=== PATIENT | female | born 1955 ===

== ENCOUNTER 2020-09-23 10:55 | Outpatient (REF) | payer MEDICARE, MEDICAID, SELFPAY ==
--- NOTE | 2020-09-23 11:00 | MM_ITS ---
EXAMINATION: MM SCREENING DIGITAL BREAST TOMOSYNTHESIS, BILATERAL CLINICAL INFORMATION: Screening. Asymptomatic. The lifetime risk of breast cancer based on the Tyrer-Cuzick Model is 5%. COMPARISON: Mammography: 09/20/2019, outside mammography 08/29/2018 ([facility]). TECHNIQUE: Digital breast tomosynthesis is performed in both the craniocaudal and mediolateral oblique views along with computer-aided detection (CAD). Synthesized 2D images are generated from the tomosynthesis. FINDINGS: There are scattered areas of fibroglandular density (ACR BI-RADS breast composition Category b). There are no significant masses, abnormal calcifications, or other abnormalities. Again, there are scattered round, rim, predominantly dermal calcifications. MM/MM tomosynthesis screening BI IMPRESSION: No mammographic evidence of malignancy. ASSESSMENT: BI-RADS 2: Benign RECOMMENDATION: Routine annual mammography screening. This patient's information was entered into a reminder system with a target due date for their next mammogram.
== END 2020-09-23 10:56 | disposition home or self-care (01) ==
LOC: HO.MAMMO 10:55
PROVIDERS: PCP Internal Medicine; Visit Provider Internal Medicine
DX: Z12.31 Encounter for screening mammogram for malignant neoplasm of breast (principal)
CPT/HCPCS: 77063; 77067

== ENCOUNTER 2021-02-14 10:46 | Outpatient (REF) | payer MEDICARE, SELFPAY ==
--- NOTE | ~2021-02-14 | XR_ITS ---
EXAMINATION: XR knee RT 4V CLINICAL INFORMATION: Reason for Exam PAIN IN RIGHT KNEE COMPARISON: None available at the time of this dictation. TECHNIQUE: frontal, lateral, tunnel and patella sunrise views FINDINGS: BONES: No fracture or dislocation is present. JOINTS: Mild narrowing of joint spaces suggest mild DJD. SOFT TISSUE: Normal XR/XR knee RT 4V IMPRESSION: Mild degenerative osteoarthritis. No joint effusion.
== END 2021-02-14 10:47 | disposition home or self-care (01) ==
LOC: HO.XRAY 10:46
PROVIDERS: PCP Internal Medicine; Visit Provider Internal Medicine
DX: M25.561 Pain in right knee (principal)
CPT/HCPCS: 73564

== ENCOUNTER 2021-09-24 10:54 | Outpatient (REF) | payer MEDICARE, SELFPAY ==
--- NOTE | ~2021-09-24 | MM_ITS ---
EXAMINATION: MM SCREENING DIGITAL BREAST TOMOSYNTHESIS, BILATERAL CLINICAL INFORMATION: Screening. Asymptomatic. The lifetime risk of breast cancer based on the Tyrer-Cuzick Model is 5%. COMPARISON: Mammography: 09/23/2020, 09/20/2019, 08/29/2018 TECHNIQUE: Digital breast tomosynthesis is performed in both the craniocaudal and mediolateral oblique views along with computer-aided detection (CAD). Synthesized 2D images are generated from the tomosynthesis. FINDINGS: There are scattered areas of fibroglandular density (ACR BI-RADS breast composition Category b). There are no significant masses, abnormal calcifications, or other abnormalities. MM/MM tomosynthesis screening BI IMPRESSION: No mammographic evidence of malignancy. ASSESSMENT: BI-RADS 1: Negative RECOMMENDATION: Routine annual mammography screening. This patient's information was entered into a reminder system with a target due date for their next mammogram.
== END 2021-09-24 10:55 | disposition home or self-care (01) ==
LOC: HO.MAMMO 10:54
PROVIDERS: Visit Provider Internal Medicine
DX: Z12.31 Encounter for screening mammogram for malignant neoplasm of breast (principal)
CPT/HCPCS: 77063; 77067

== ENCOUNTER → 2021-11-25 07:53 | Outpatient (BNVA) | payer MEDICARE, SELFPAY | PROVIDERS: PCP Internal Medicine; Referring Provider Internal Medicine; Visit Provider Nurse Practitioner | DX: Z12.11 Encounter for screening for malignant neoplasm of colon (principal); K21.9 Gastro-esophageal reflux disease without esophagitis; R10.13 Epigastric pain; Z83.71 Family history of colonic polyps | CPT/HCPCS: 99202 ==

== ENCOUNTER 2021-12-22 09:48 | Day surgery (SDC) | payer MEDICARE, SELFPAY ==
--- NOTE | 2021-12-19 12:49 | HO.ANESPROP2 ---
Documented by User: Monica Avalos NP 12/19/21 12:49 HPI - Anesthesia Eval Consult details Narrative: 66yo F for Upper Endoscopy and Colonoscopy PMFSH Active Problems Active Problems: All Active Problems (Updated 12/16/21 @ 11:22 by Ilana Baez, RN) GERD (gastroesophageal reflux disease) (Acute) Epigastric pain (Acute) Colon cancer screening (Acute) Hypertension (Acute) High cholesterol (Acute) Osteoarthritis of knees, bilateral (Acute) Insomnia (Acute) Family history of polyps in the colon (Acute) Past Medical History Medical History (Updated 12/16/21 @ 11:22 by Ilana Baez, MAGDI) Elevated cholesterol GERD (gastroesophageal reflux disease) HTN (hypertension) Impaired fasting glucose Insomnia Knee pain Surgical History Surgical History (Updated 11/25/21 @ 08:30 by BRI Clark) History of cholecystectomy History of hysterectomy Social History Social History Patient Tobacco Use Status: Never used Tobacco Second Hand Smoke Exposure: No Use of substances other than those prescribed or required for medical reasons: No Are you DNR?: No Advance Directives: No Advance Directives Information Provided: Yes Advance Directives on File: No Meds Allergies Allergy/AdvReac Type Severity Reaction Status Date / Time No Known Allergies Allergy Verified 12/16/21 11:17 [No Known Allergies*] Home Medications Medication Instructions Recorded Confirmed Last Taken Type ergocalciferol (vitamin D2) 1,250 1,250 mcg PO QWEEK 11/25/21 12/16/21 Unknown History mcg (50,000 unit) capsule losartan 50 mg tablet 50 mg PO DAILY 11/25/21 12/16/21 Unknown History naproxen 500 mg tablet 0 mg PO 11/25/21 Unknown History omega-3 fatty acids 1,000 mg 1,000 mg PO DAILY 11/25/21 12/16/21 Unknown History capsule Exam Exam Date and Time: December 19, 2021 1249 Assessment and Plan Assessment Anesthesia Assessment: Chart Reviewed Documented by User: Erika Cheema MD 12/22/21 11:48 [facility] Past Medical History Medical History (Updated 12/16/21 @ 11:22 by Ilana Baez, MAGDI) Elevated cholesterol GERD (gastroesophageal reflux disease) HTN (hypertension) Impaired fasting glucose Insomnia Knee pain Family History Family history of problems with anesthesia: No Surgical History Surgical History (Updated 11/25/21 @ 08:30 by BRI Clark) History of cholecystectomy History of hysterectomy History of Problems with Anesthesia: No Social History Social History Patient Tobacco Use Status: Never used Tobacco Second Hand Smoke Exposure: No Use of substances other than those prescribed or required for medical reasons: No Are you DNR?: No Advance Directives: No Advance Directives Information Provided: Yes Advance Directives on File: No Meds Allergies Allergy/AdvReac Type Severity Reaction Status Date / Time No Known Allergies Allergy Verified 12/16/21 11:17 [No Known Allergies*] Home Medications Medication Instructions Recorded Confirmed Last Taken Type ergocalciferol (vitamin D2) 1,250 1,250 mcg PO QWEEK 11/25/21 12/16/21 Unknown History mcg (50,000 unit) capsule losartan 50 mg tablet 50 mg PO DAILY 11/25/21 12/16/21 Unknown History naproxen 500 mg tablet 0 mg PO 11/25/21 Unknown History omega-3 fatty acids 1,000 mg 1,000 mg PO DAILY 11/25/21 12/16/21 Unknown History capsule Exam Airway Mallampati Class: II TM Dist: >3cm Neck ROM: Full Heart: rrr Lungs: cta Assessment and Plan Assessment Anesthesia Assessment: Anesthesia Plan Discussed and Chart Reviewed Final Anesthetic Review Family History of Problems with Anesthesia: No History of Problems with Anesthesia: No NPO: Yes ASA Class: II Final Preanesthetic Review: No Changes in Pt Med Stat, Meds/Allgs Chart Reviewed and Consent Obtained/Reviewed Patient Risk: Intermediate Procedure Risk: Intermediate Anesthetic Plan Anesthetic Plan: MAC: Disposition: Standard PACU
[2021-12-22 10:48] VITALS: BP 130/65; PULSE 58; RESP 16; TEMP 37.1; O2SAT 100; BMI 26.6
[2021-12-22] MEDS: Lactated Ringers 1,000 ML 100 ML IVCONT (10:59)
--- NOTE | 2021-12-22 11:37 | MHC.SHP ---
Pre-Procedural Eval Section A Date of Service: 12/22/21 The patient is an INPATIENT: No Changes since office visit: Yes Patient answered all questions; No Cold of Flu in the past 2 weeks, No New Medical Problems and No Changes in Medication The History & Physical has been completed within 30 days and I have reviewed it.: Yes Section B Chief Complaint: Epigastric Pain, Screening Allergies: Allergies Allergy/AdvReac Type Severity Reaction Status Date / Time No Known Allergies Allergy Verified 12/16/21 11:17 [No Known Allergies*] Plan I have reviewed the history and physical and performed a pertinent physical examination on my patient. No changes have occurred unless specified.
--- NOTE | 2021-12-22 11:37 | PM.OP ---
Brief Operative Note Date of Service: 12/22/21 Pre-op diagnosis: GERD, epigastric pain, colon cancer screening Post-op diagnosis: other (Gastritis, colon polyps, diverticulosis, hemorrhoids) Procedure: FLEXIBLE TRANSORAL UPPER GASTROINTESTINAL ENDOSCOPY WITH BIOPSIES AND COLONOSCOPY TILL CECUM WITH BIOPSIES, SNARE POLYPECTOMY AND SUBMUCOSAL INJECTION UPPER ENDOSCOPY Consent: Indications for the procedure and potential complications of bleeding, perforation, reaction to medications and missed diagnosis were discussed with the patient and informed consent was obtained. Instrument: Olympus GIF H 190 mid size upper endoscope Monitoring: Vital signs and clinical assessment, continuous EKG monitoring, Pulse oximetry, Carbon Dioxide monitoring and blood pressure monitoring were done throughout the procedure. Procedure: The patient was placed in the left lateral decubitis position and pre-procedure medications were administered and a bite block was placed. The endoscope was inserted into the mouth and advanced under direct vision to the third part of duodenum. A careful inspection was made as the upper endoscope was withdrawn including a retroflexed examination of the proximal stomach; Findings and interventions are described below. Findings: Larynx: Normal Esophagus: GE junction at 35. No esophagitis or Salvador's. Stomach: Moderate diffuse gastric erythema. Biopsies were obtained from the gastric body and antrum. Grade 2 flap valve on retroflexed examination of the cardia. Duodenum: Normal bulb and descending duodenum. Biopsies obtained from the 3rd part of duodenum to check for celiac sprue. Intervention: Biopsies as noted above COLONOSCOPY PROCEDURE NOTE Consent: Indications for the procedure and potential complications of bleeding, perforation, reaction to medications and missed diagnosis were discussed with the patient and informed consent was obtained. Instrument: Olympus PCF H 190 L variable stiffness pediatric colonoscope Monitoring: Vital signs and clinical assessment, intermittent blood pressure monitoring, continuous EKG monitoring, Pulse oximetry and Carbon Dioxide monitoring were done throughout the procedure. Colon withdrawl time was 40 minutes. Procedure: The patient was placed in the left lateral decubitis position and pre-procedure medications were administered. After a digital rectal examination of the ano-rectum, the video colonoscope was inserted into the rectum and advanced through the colon to the cecum. The colonoscope was slowly withdrawn in a retrograde panoramic fashion and the colon mucosa was carefully examined including a retroflexed view of the rectum. Findings and interventions are described below. Procedure Difficulty: Colon was long and tortuous and there was some loop formation. Patient was placed in the supine position and LLQ pressure was applied to intubate the cecum Findings: Terminal Ileum: Not evaluated Cecum: A 12-15 mm flat polyp opposite the ICV - raised with 3 cc of saline (submucosal injection) and removed with a hot snare Ascending Colon: Normal Transverse Colon: Normal Descending Colon: Moderate diverticulosis Sigmoid Colon: A 7-8 mm sessile polyp removed with a cold biopsy. Severe diverticulosis Rectum: Normal Ano-rectum: Small internal hemorrhoids Colon preparation: Excellent Impression and Post Procedure Diagnosis: Endoscopy Findings: ESOPHAGUS: Normal STOMACH: Diffuse Gastritis DUODENUM: Normal - bxed to check for celiac sprue Colonoscopy Findings: Two small to medium sized polyps removed Moderate diverticulosis seen in the left colon Small hemorrhoids on retroflexed exam. Plan: Await pathology results Patient has an appointment on 01/06/22 in the GI Clinic with Melanie Sanchez NP. Repeat Colonoscopy interval based on path results - in 3-5 years if polyps are adenomatous and 10 years if polyps are hyperplastic. Above findings were reviewed with the patient and GERD, colon polyps and diverticulosis handouts were given in the discharge area Surgeon: Bernardino Oh MD Anesthesia: MAC (Dr Serrato & Dr Nobles) Was an Technology Coordinator used for this Procedure?: Yes Technology Coordinator: Lashanda Styles Estimated blood loss (mL): 0 Pathology: other (A. small bowel bxs, R/O celiac B. gastric antrum bxs, R/O H. pylori C. gastric body bxs, R/O gastritis D. cecal polyp with saline lift E. sigmoid polyp) Condition: stable Disposition: PACU
--- NOTE | 2021-12-22 11:38 | W.PM.OPN ---
Operative Note Operative Note Date of Service: 12/22/21 Narrative: Pre-op diagnosis: GERD, epigastric pain, colon cancer screening Post-op diagnosis:?other (Gastritis, colon polyps, diverticulosis, hemorrhoids) Procedure: FLEXIBLE TRANSORAL UPPER GASTROINTESTINAL ENDOSCOPY WITH BIOPSIES AND COLONOSCOPY TILL CECUM WITH BIOPSIES, SNARE POLYPECTOMY AND SUBMUCOSAL INJECTION UPPER ENDOSCOPY Consent:?Indications for the procedure and potential complications of bleeding, perforation, reaction to medications and missed diagnosis were discussed with the patient and informed consent was obtained. Instrument:?Olympus GIF H 190 mid size upper endoscope Monitoring: Vital signs and clinical assessment, continuous EKG monitoring, Pulse oximetry, Carbon Dioxide monitoring and blood pressure monitoring were done throughout the procedure. Procedure:?The patient was placed in the left lateral decubitis position and pre-procedure medications were administered and a bite block was placed. The endoscope was inserted into the mouth and advanced under direct vision to the third part of duodenum. A careful inspection was made as the upper endoscope was withdrawn including a retroflexed examination of the proximal stomach; Findings and interventions are described below. Findings: Larynx:? Normal Esophagus:?GE junction at 35. No esophagitis or Salvador's. Stomach:?Moderate diffuse gastric erythema. Biopsies were obtained from the gastric body and antrum. Grade 2 flap valve on retroflexed examination of the cardia. Duodenum:?Normal bulb and descending duodenum.? Biopsies obtained from the 3rd part of duodenum to check for celiac sprue. Intervention:?Biopsies as noted above COLONOSCOPY PROCEDURE NOTE Consent:?Indications for the procedure and potential complications of bleeding, perforation, reaction to medications and missed diagnosis were discussed with the patient and informed consent was obtained. Instrument:?Olympus PCF H 190 L variable stiffness pediatric colonoscope Monitoring:?Vital signs and clinical assessment, intermittent blood pressure monitoring, continuous EKG monitoring, Pulse oximetry and Carbon Dioxide monitoring were done throughout the procedure. Colon withdrawl time was 40 minutes. Procedure:?The patient was placed in the left lateral decubitis position and pre-procedure medications were administered. After a digital rectal examination of the ano-rectum, the video colonoscope was inserted into the rectum and advanced through the colon to the cecum. The colonoscope was slowly withdrawn in a retrograde panoramic fashion and the colon mucosa was carefully examined including a retroflexed view of the rectum. Findings and interventions are described below. Procedure Difficulty:??Colon was long and tortuous and there was some loop formation. Patient was placed in the supine position and LLQ pressure was applied to intubate the cecum Findings: Terminal Ileum: Not evaluated Cecum:? A 12-15 mm flat polyp opposite the ICV - raised with 3 cc of saline (submucosal injection) and removed with a hot snare Ascending Colon:??Normal Transverse Colon:??Normal Descending Colon:? Moderate diverticulosis Sigmoid Colon:? A 7-8 mm sessile polyp removed with a cold biopsy. Severe diverticulosis Rectum:??Normal Ano-rectum:??Small internal hemorrhoids Colon preparation: Excellent? Impression and Post Procedure Diagnosis: Endoscopy Findings: ESOPHAGUS: Normal STOMACH: Diffuse Gastritis DUODENUM: Normal - bxed to check for celiac sprue Colonoscopy Findings: Two small to medium sized polyps removed Moderate diverticulosis seen in the left colon Small hemorrhoids on retroflexed exam. Plan: Await pathology results Patient has an appointment on 01/06/22 in the GI Clinic with? Melanie Sanchez NP. Repeat Colonoscopy interval based on path results - in 3-5 years if polyps are adenomatous and 10 years if polyps are hyperplastic. Above findings were reviewed with the patient and GERD, colon polyps and diverticulosis handouts were given in the discharge area Surgeon: Bernardino Oh MD Anesthesia:?MAC (Dr Serrato & Dr Nobles) Was an Payroll Director used for this Procedure?:?Yes Payroll Director:?Lashanda Styles Estimated blood loss (mL):?0 Pathology:?other (A. small bowel bxs, R/O celiac? B. gastric antrum bxs, R/O H. pylori? C. gastric body bxs, R/O gastritis? D. cecal polyp with saline lift? E. sigmoid polyp) Condition:?stable Disposition:?PACU
[2021-12-22 12:55] VITALS: BP 105/52; PULSE 76; RESP 16; TEMP 36.1; O2SAT 98
[2021-12-22 13:10] VITALS: BP 106/60; PULSE 56; RESP 16; O2SAT 99
[2021-12-22 13:25] VITALS: BP 134/84; PULSE 56; RESP 16; TEMP 36.1; O2SAT 100
== END 2021-12-22 13:52 | disposition home or self-care (01) ==
PROVIDERS: PCP Internal Medicine; Visit Provider Internal Medicine Gastroenterology
PROC: (CPT 45385; principal; 2021-12-22 11:20)
DX: Z12.11 Encounter for screening for malignant neoplasm of colon (principal); Z83.71 Family history of colonic polyps; D12.0 Benign neoplasm of cecum; D12.5 Benign neoplasm of sigmoid colon; K57.30 Diverticulosis of large intestine without perforation or abscess without bleeding; K64.8 Other hemorrhoids; K21.9 Gastro-esophageal reflux disease without esophagitis; K29.50 Unspecified chronic gastritis without bleeding; E78.00 Pure hypercholesterolemia, unspecified; I10 Essential (primary) hypertension; R73.01 Impaired fasting glucose; G47.00 Insomnia, unspecified; M17.0 Bilateral primary osteoarthritis of knee; Z79.899 Other long term (current) drug therapy; Z90.49 Acquired absence of other specified parts of digestive tract
CPT/HCPCS: 45385; 45380; 45381; 43239; 88305; 88342

== ENCOUNTER → 2022-01-06 08:27 | Outpatient (BNVA) | payer MEDICARE, SELFPAY | PROVIDERS: PCP Internal Medicine; Referring Provider Internal Medicine; Visit Provider Nurse Practitioner | DX: K21.9 Gastro-esophageal reflux disease without esophagitis (principal); D12.6 Benign neoplasm of colon, unspecified; R10.13 Epigastric pain; K59.00 Constipation, unspecified; Z98.890 Other specified postprocedural states | CPT/HCPCS: 99212 ==

== ENCOUNTER → 2022-02-10 09:22 | Outpatient (BNVA) | payer OTHER, SELFPAY | PROVIDERS: PCP Internal Medicine; Visit Provider Surgery Vascular Surgery | DX: I83.12 Varicose veins of left lower extremity with inflammation (principal) | CPT/HCPCS: 99202 ==

== ENCOUNTER 2022-04-08 07:52 | Outpatient (REF) | payer OTHER, SELFPAY ==
--- NOTE | ~2022-04-08 | US_ITS ---
EXAMINATION: BILATERAL LOWER EXTREMITY VENOUS ULTRASOUND (Reflux Exam) CLINICAL INDICATION: Left lower extremity varicose veins. COMPARISON: None. TECHNIQUE: Color flow triplex imaging and compression Doppler was performed to evaluate both the deep and the superficial systems bilaterally. To evaluate the superficial system, the examination was performed in the upright position. Color-flow Doppler ultrasound and compression ultrasound were utilized. In addition, maneuvers were utilized to demonstrate reflux. FINDINGS: SUPERFICIAL ULTRASOUND WITH DOPPLER OF RIGHT LOWER EXTREMITY GREAT SAPHENOUS VEIN: Saphenofemoral junction: 5 mm Max diameter: 5 mm Min diameter: 2 mm Reflux: There is segmental reflux at the knee and below the knee up to 3 seconds. DUPLICATED MEDIAL GREAT SAPHENOUS VEIN: Max Diameter: None Imaged Reflux: NA DUPLICATED LATERAL GREAT SAPHENOUS VEIN: Diameter: 2 mm at the saphenofemoral junction. Reflux: None SMALL SAPHENOUS VEIN: Proximal Calf: 3 mm Distal Calf: 3 mm Reflux: There is gross reflux throughout the small saphenous vein measuring up to 2.7 seconds in the proximal calf. VEIN OF GIACOMINI: None Imaged. PERFORATORS: Location: Distal calf, at the knee, proximal and mid calf. Varicosities measure between 1 and 3 mm. Reflux: Varicosities at the knee and in the calf demonstrate up to 2.7 seconds of reflux. VARICOSITIES: Location: None Imaged Reflux: NA DEEP VENOUS ULTRASOUND OF THE RIGHT LOWER EXTREMITY: Common Femoral Vein: Compressible, normal respiratory variation and augmented flow. Femoral vein: Compressible, normal color flow and augmentation. Popliteal Vein: Compressible, normal augmentation. Deep Reflux: There is no evidence of reflux in the deep system in either the common femoral vein or the popliteal vein. Johnson's Cyst: There is no evidence of a Johnson's cyst. SUPERFICIAL ULTRASOUND WITH DOPPLER OF LEFT LOWER EXTREMITY GREAT SAPHENOUS VEIN: Saphenofemoral junction: 6 mm Max diameter: 6 mm Min diameter: 1 mm Reflux: Segmental reflux above the knee and at the knee up to 2.9 seconds. DUPLICATED MEDIAL GREAT SAPHENOUS VEIN: Max Diameter: None Imaged Reflux: NA DUPLICATED LATERAL GREAT SAPHENOUS VEIN: Diameter: None Imaged Reflux: NA SMALL SAPHENOUS VEIN: Proximal Calf: 3 mm Distal Calf: 2 mm Reflux: There is up to 0.5 seconds of reflux within the proximal/mid calf. VEIN OF GIACOMINI: None Imaged. PERFORATORS: Location: Mid and distal calf cyst measuring between 1 and 2 mm Reflux: None VARICOSITIES: Location: None Imaged Reflux: NA DEEP VENOUS ULTRASOUND OF THE LEFT LOWER EXTREMITY: Common Femoral Vein: Compressible, normal respiratory variation and augmented flow. Femoral vein: Compressible, normal color flow and augmentation. Popliteal Vein: Compressible, normal augmentation. Deep Reflux: There is no evidence of reflux in the deep system in either the common femoral vein or the popliteal vein. Johnson's Cyst: There is no evidence of a Johnson's cyst. US/US venous duplex LE BI IMPRESSION: 1. Segmental right great saphenous venous insufficiency at and below the knee. 2. Segmental left great saphenous venous insufficiency above the knee and at the knee. 3. Bilateral small saphenous venous insufficiency. 4. No evidence of DVT or deep venous insufficiency.
== END 2022-04-08 07:53 | disposition home or self-care (01) ==
LOC: HO.US 07:52
PROVIDERS: Visit Provider Surgery Vascular Surgery
DX: I83.12 Varicose veins of left lower extremity with inflammation (principal)
CPT/HCPCS: 93970

== ENCOUNTER → 2022-04-14 08:48 | Outpatient (BNVA) | payer OTHER, SELFPAY | PROVIDERS: PCP Internal Medicine; Visit Provider Surgery Vascular Surgery | DX: I83.12 Varicose veins of left lower extremity with inflammation (principal) | CPT/HCPCS: 99212 ==

== ENCOUNTER → 2022-05-01 08:18 | Outpatient (BNVA) | payer OTHER, SELFPAY | PROVIDERS: PCP Internal Medicine; Visit Provider Surgery Vascular Surgery | DX: I83.12 Varicose veins of left lower extremity with inflammation (principal) | CPT/HCPCS: 36475 ==

== ENCOUNTER 2022-05-04 14:48 | Outpatient (REF) | payer OTHER, SELFPAY ==
--- NOTE | ~2022-05-04 | US_ITS ---
EXAMINATION: US VENOUS ULTRASOUND WITH DOPPLER LOWER EXTREMITY, LEFT CLINICAL INFORMATION: Pain left leg COMPARISON: None TECHNIQUE: Ultrasound of the deep veins is performed from the hip to the calf with compression sonography and color and pulse Doppler assessment. Spectral analysis with color-flow imaging is performed. FINDINGS: There is normal venous compression and respiratory variation and augmented flow. The visualized common femoral vein, superficial femoral vein, profunda femoral vein, popliteal vein, and the trifurcation region shows no evidence of deep venous thrombosis. There is no significant popliteal fossa cyst. The left greater saphenous vein is occluded 1.4 cm from the junction status post ablation procedure. If the patient's symptoms persist, followup ultrasound in 5 days 7 days might be of value to exclude proximal propagation from a non-visualized calf vein. US/US venous duplex LE LT IMPRESSION: No DVT demonstrated in the left lower extremity. Occluded left greater saphenous vein approximately 1.4 cm from the femoral venous junction junction.
== END 2022-05-04 14:49 | disposition home or self-care (01) ==
LOC: HO.US 14:48
PROVIDERS: Visit Provider Surgery Vascular Surgery
DX: M79.605 Pain in left leg (principal)
CPT/HCPCS: 93971

== ENCOUNTER → 2022-05-14 10:39 | Outpatient (BNVA) | payer OTHER, SELFPAY | PROVIDERS: PCP Internal Medicine; Visit Provider Surgery Vascular Surgery | DX: I83.11 Varicose veins of right lower extremity with inflammation (principal) | CPT/HCPCS: 99212 ==

== ENCOUNTER 2022-05-28 14:52 | Outpatient (REF) | payer OTHER, SELFPAY ==
--- NOTE | ~2022-05-28 | MM_ITS ---
EXAMINATION: BONE DENSITOMETRY CLINICAL INDICATION: Menopause. COMPARISON: This is the patient's baseline examination. TECHNIQUE: Using a [employer] DXA System (software version: 13.1) manufactured by [employer], dual-energy x-ray absorptiometry was performed of the lumbar spine and left hip. The images are of good technical quality. Summary results are attached. FINDINGS: AP SPINE L1-L4: BMD 0.985 g/cm2, Z-score 0.0, T-score -1.6, osteopenia. LEFT FEMUR, NECK: BMD 0.736 g/cm2, Z-score -0.6, T-score -2.2, osteopenia. LEFT FEMUR, TOTAL: BMD 0.906 g/cm2, Z-score 0.5, T-score -0.8, normal. IDENTIFIED RISK FACTORS: Early menopause, secondary osteoporosis, hysterectomy, bilateral oophorectomy. HISTORY OF FRACTURE: None listed. MEDICATIONS: None listed. MM/XR DEXA axial skeleton IMPRESSION: 1. DIAGNOSIS: Osteopenia based on the lowest T-score value of -2.2 in the femoral neck applying World Health Organization criteria. 2. 10-YEAR FRACTURE RISK PREDICTION, FRAX: Major osteoporotic fracture (clinical spine, forearm, hip or shoulder) 6.7%. Hip fracture 1.2%. 3. Treatment Recommendations: NOF guidelines recommend consideration for treatment in postmenopausal women and men age 50 and older presenting with the following: -A hip or vertebral (clinical or morphometric) fracture. -T-score less than or equal to -2.5 at the femoral neck or spine after appropriate evaluation to exclude secondary causes. -Low bone mass at the hip or spine and a 10-year fracture probability by FRAX of greater than or equal to 3% for hip fracture or greater than or equal to 20% for major osteoporotic fracture based on the [place] adapted WHO algorithm. 4. Other Recommendations: All treatment decisions require clinical judgment and consideration of individual patient factors, including patient preferences, comorbidities, previous drug use, risk factors not captured in the FRAX model (e.g. frailty, falls, vitamin D deficiency, increased bone turnover, interval significant decline in bone density) and possible under or overestimation of fracture risk by FRAX. Additional medical evaluation for secondary cause of low bone mineral density may be appropriate. FUTURE SCAN RECOMMENDATION: People with diagnosed cases of osteoporosis or at high risk for fracture should have regular bone mineral density tests. For patients eligible for Medicare, routine testing is allowed once every 2 years. The testing frequency can be increased to one year for patients who have rapidly progressing disease, those who are receiving or discontinuing medical therapy to restore bone mass, or have additional risk factors.
== END 2022-05-28 14:53 | disposition home or self-care (01) ==
LOC: HO.MAMMO 14:52
PROVIDERS: Visit Provider Internal Medicine
DX: Z13.820 Encounter for screening for osteoporosis (principal); Z78.0 Asymptomatic menopausal state; E55.9 Vitamin D deficiency, unspecified
CPT/HCPCS: 77080

== ENCOUNTER → 2022-06-09 09:58 | Outpatient (BNVA) | payer OTHER, SELFPAY | PROVIDERS: PCP Internal Medicine; Visit Provider Nurse Practitioner | DX: K21.9 Gastro-esophageal reflux disease without esophagitis (principal); K59.00 Constipation, unspecified; R10.13 Epigastric pain; Z86.010 Personal history of colon polyps | CPT/HCPCS: 99212 ==

== ENCOUNTER → 2022-07-17 08:05 | Outpatient (BNVA) | payer OTHER, SELFPAY | PROVIDERS: PCP Internal Medicine; Visit Provider Surgery Vascular Surgery | DX: I83.11 Varicose veins of right lower extremity with inflammation (principal) | CPT/HCPCS: 36482 ==

== ENCOUNTER → 2022-07-30 09:51 | Outpatient (BNVA) | payer OTHER, SELFPAY | PROVIDERS: PCP Internal Medicine; Visit Provider Surgery Vascular Surgery | DX: I83.11 Varicose veins of right lower extremity with inflammation (principal) | CPT/HCPCS: 99212 ==

== ENCOUNTER 2022-09-25 11:37 | Outpatient (REF) | payer OTHER, SELFPAY ==
--- NOTE | ~2022-09-25 | MM_ITS ---
EXAMINATION: MM SCREENING DIGITAL BREAST TOMOSYNTHESIS, BILATERAL CLINICAL INFORMATION: Screening. Asymptomatic. The lifetime risk of breast cancer based on the Tyrer-Cuzick Model is 4%. COMPARISON: Mammography: 09/24/2020, 09/23/2020, 09/20/2019 TECHNIQUE: Digital breast tomosynthesis is performed in both the craniocaudal and mediolateral oblique views along with computer-aided detection (CAD). Synthesized 2D images are generated from the tomosynthesis. FINDINGS: There are scattered areas of fibroglandular density (ACR BI-RADS breast composition Category b). There are no significant masses, abnormal calcifications, or other abnormalities. No developing density or architectural abnormality. There are scattered predominantly dermal round and rim calcifications again seen. Small intramammary node again noted posterior 9:00 right breast similar to 2019. No significant changes. MM/MM tomosynthesis screening BI IMPRESSION: No mammographic evidence of malignancy. ASSESSMENT: BI-RADS 2: Benign RECOMMENDATION: Routine annual mammography screening. This patient's information was entered into a reminder system with a target due date for their next mammogram.
== END 2022-09-25 11:38 | disposition home or self-care (01) ==
LOC: HO.MAMMO 11:37
PROVIDERS: PCP Internal Medicine; Visit Provider Internal Medicine
DX: Z12.31 Encounter for screening mammogram for malignant neoplasm of breast (principal)
CPT/HCPCS: 77063; 77067

== ENCOUNTER → 2022-12-10 08:57 | Outpatient (BNVA) | payer OTHER, SELFPAY | PROVIDERS: PCP Internal Medicine; Visit Provider Nurse Practitioner | DX: K59.00 Constipation, unspecified (principal); K21.9 Gastro-esophageal reflux disease without esophagitis | CPT/HCPCS: 99212 ==

== ENCOUNTER 2023-03-03 11:48 | Outpatient (REF) | payer OTHER, SELFPAY ==
--- NOTE | ~2023-03-03 | XR_ITS ---
EXAMINATION: XR THORACIC SPINE CLINICAL INFORMATION: Mid back pain for 6 months. COMPARISON: None available. TECHNIQUE: 3 views of the thoracic spine were obtained. FINDINGS: Mild increased thoracic kyphosis is seen with normal spinal alignment. Mild multilevel degenerative changes are seen in the thoracic spine with degenerative disc disease including disc space narrowing and marginal osteophyte formation. There is no acute fracture. The soft tissues are unremarkable. XR/XR thoracic spine 3V IMPRESSION: Mild increased thoracic kyphosis and mild multilevel degenerative changes without acute abnormality.
== END 2023-03-03 11:49 | disposition home or self-care (01) ==
LOC: HO.XRAY 11:48
PROVIDERS: PCP Internal Medicine; Visit Provider Internal Medicine
DX: M62.830 Muscle spasm of back (principal)
CPT/HCPCS: 72072

== ENCOUNTER 2023-04-14 11:00 | Outpatient (RCR) | payer OTHER, SELFPAY ==
--- NOTE | 2023-03-05 10:44 | MHC.PT.EP ---
[facility] [place] [facility] [place] [facility] [place] Office [address] [phone] F: [phone] F: [phone] F: [phone] F: [phone] Physical Therapy Plan of Care Date of Evaluation: Date of Surgery: Diagnosis: spasms of thoracic back muscle (MD Dx) R shoulder subacromial impingement from poor posture (PT Dx) Assessment: Patient is a 67 y.o. Greek speaking female who is referred to PT by Darline Finnegan MD with Dx of spasms of thoracic back muscle. PT diagnosis is R shoulder subacromial impingement from poor posture and muscle imbalances in shoulder girdle. Patient impairments include pain, poor posture, limited ROM, weakness. Patient current functional limitations are moving arm into extension, reaching overhead, helping bathe mother, brain picker items. Patient will benefit from skilled PT to address aforementioned impairments and functional limitations to meet established goals. Frequency and Duration: The patient will be seen 2x/week for 4 weeks Short Term Goals: 2 weeks Patient demonstrates consistency and independence with HEP to self manage symptoms. Patient is able to self correct poor posture in sitting without cues to reduce strain to neck and back. Care Home Goals: 4 weeks Patient presents with increased R shoulder flexion AROM 175 degrees to reach to high cabinets. Patient presents with increased R shoulder flexion strength 5/5 to be able to brain picker items out of refrigerator. Treatment Plan: Modalities to reduce pain, spasms and effusion. Manual therapy to restore motion and function. Therapeutic exercise to improve strength and flexibility. Neuromuscular re-education for posture and balance. Therapeutic activities to return to functional activities of daily living. Electronically signed by: Alison Howe, PT, DPT Please sign and return to therapist. Thank you for your referral.
--- NOTE | 2023-04-14 17:13 | MHC.PT.DC ---
[facility] [place] Office [place] Office [place] Office [address] [place] [phone] F: [phone] F: [phone] F: [phone] F: [phone] Physical Therapy Discharge Report Diagnosis: spasms of thoracic back muscle (MD Dx) R shoulder subacromial impingement from poor posture (PT Dx) Date of Surgery: Date of Evaluation: 03/05/23 Date of Discharge: 04/14/23 Treatments to Date: 10 Cancellations to Date: No Shows to Date: Discharge Status: Improved Function Independent with HEP Discharge Summary: Discussed with patient continuing PT or discharge. She reports she feels significant improving since beginning PT and would like to be discharged today. She feels she can maintain her improvements with home exercises. I encouraged her to keep monitoring her posture to reduce strain to neck and mid back. Electronically signed by: Alison Howe, PT, DPT Please sign and return to therapist. Thank you for your referral.
== END 2023-04-14 17:13 | disposition home or self-care (01) ==
LOC: HO.PT 11:00
PROVIDERS: PCP Internal Medicine; Visit Provider Internal Medicine
DX: M62.830 Muscle spasm of back (principal)
CPT/HCPCS: 97110; 97112; 97140; 97161; 97530

== ENCOUNTER 2023-06-24 09:18 | Outpatient (AMB) | payer OTHER, SELFPAY ==
--- NOTE | 2023-06-24 09:20 | MHC.OFFVIS ---
Intake Vital Signs 06/24/23 09:24 Height 5 ft 1 in Weight 142 lb 13.753 oz BMI 27.0 BP 118/65 Blood Pressure Location Lt brachial Position Sitting Pulse 71 Intake Visit Reasons: 6 month FU Intake Note: Patient presents to in office visit today in 6 months follow up of GERD and CIC. CC: Patient reports she has been doing well and symptoms are well managed with medications prescribed. She denies any GI symptoms today. 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 The only new medical conditions was a procedure she had on her leg for varicose veins and now is wearing compression stockings. ROV 6 mos. (2) GERD (gastroesophageal reflux disease): ?Code(s): K21.9 - Gastro-esophageal reflux disease without esophagitis ? ? ? Medications: Refilled pantoprazole (Prot jordon) 40 mg? PO DAILY 30 days 30 tabs 6RF E K21.9 - Gastro-eso phageal reflux dis ease without esoph agitis ? sennosides (Shamika-k ot) 17.2 mg (2 x 8.6 m g) PO BEDTIME 60 t abs 6RF K59.00 - Constipat ion, unspecified ? docusate sodium (C olace) 100 mg? PO .DAILY WITH FOOD 30 days 30 caps 6RF ? ? TODAY'S VISIT VENEZUELAN #[id number] She says she continues to improve with her GI conditions. She continues on her protonix, senna and colace. She remains satisfied with her GI regimen. Return office visit in 6 months [facility] Medical History Elevated cholesterol GERD (gastroesophageal reflux disease) HTN (hypertension) Impaired fasting glucose Insomnia Knee pain Surgical History H/O colonoscopy History of cholecystectomy History of hysterectomy Hx of varicose vein ligation Social History Patient Tobacco Use Status: Never used Tobacco Second Hand Smoke Exposure: No Review of Systems Const Denies fatigue, Denies fever(s), Denies night sweats, Denies poor appetite and Denies weight loss Eyes Details: glasses Reports requires corrective lenses ENT Reports Normal hearing present, Denies dental pain, Denies dysphagia, Denies hearing loss, Denies mouth pain, Denies odynophagia, Denies throat swelling, Denies tongue swelling and Reports other (Dentition adequate) Card Reports no additional complaints Resp Reports no additional complaints GI Denies abdominal pain, Denies melena, Denies bloating, Denies hematochezia, Reports constipation, Denies GI cramping, Denies dysphagia, Denies excessive flatus, Denies early satiety, Reports heartburn, Denies diarrhea, Denies nausea, Denies odynophagia, Denies vomiting and Denies hematemesis Skin/Breast Denies pruritus, Denies lesions, Denies rash and Denies jaundice Neuro Reports Normal hearing present and Denies Abnormal speech present Endo Denies fatigue Aller/Immun Denies throat swelling and Denies tongue swelling Physical Exam Vital Signs: Last Vital Signs Pulse 71 06/24/23 09:24 BP 118/65 06/24/23 09:24 BMI result Body Mass Index 27.0 Const General: cooperative, no acute distress, well developed and well groomed Nutritional Appearance: average body habitus and well nourished Orientation/consciousness: oriented to person, oriented to place and oriented to time Limitations: language barrier HEENT Head: Yes normocephalic and Yes atraumatic Eyes General: appearance normal, both eyes and all related structures Pupils: Equal, round and reactive pupils present Neck Neck: Yes normal visual inspection and Yes no lymphadenopathy Thyroid: Thyroid normal Resp Effort & Inspection: normal respiratory effort and able to speak in complete sentences Auscultation: clear to auscultation bilaterally Cardio Rate: regular rate Rhythm: regular rhythm Heart sounds: Normal, physiologic split S2 sound present Peripheral pulses: radial pulses present and posterior tibial pulses present GI Inspection: No distended and No Abdominal panniculus present Palpation (GI): Soft to palpation, nontender, no guarding, not rigid and No hepatosplenomegaly present Percussion: Yes normal to percussion Auscultation: normal bowel sounds Rectal Exam - Female: deferred Skin General skin exam: no rashes or lesions noted, turgor normal, skin not dry, no jaundice, No spider nevi and no striae Rashes: no rashes Nails: normal Neuro General: oriented to person, oriented to place and oriented to time Cranial nerves: Yes Equal, round and reactive pupils present and Yes Normal hearing present Speech: No Abnormal speech present Extrem General: Yes normal to inspection, No clubbing, No cyanosis and No edema Psych Appearance: grossly normal and well kempt Mental Status: mental status grossly normal Speech and movement: Normal speech and movement present Affect: normal affect Attitude: cooperative Thought process: Normal thought process present and not confabulating Thought content: Normal thought content present Insight: Fair insight present (Psych) Judgement: Fair judgement present (Psych) Assessment & Plan Assessment & Plan (1) GERD (gastroesophageal reflux disease): Code(s): K21.9 - Gastro-esophageal reflux disease without esophagitis Plan: VENEZUELAN #[id number] She says she continues to improve with her GI conditions. She continues on her protonix, senna and colace. She remains satisfied with her GI regimen. Return office visit in 6 months (2) Constipation: Code(s): K59.00 - Constipation, unspecified Medications: Refilled pantoprazole (Protonix) 40 mg PO DAILY 30 days 30 tabs 6RF K21.9 - Gastro-esophageal reflux disease without esophagitis sennosides (Shamika-crissy) 17.2 mg (2 x 8.6 mg) PO BEDTIME 60 tabs 6RF K59.00 - Constipation, unspecified docusate sodium (Colace) 100 mg PO .DAILY WITH FOOD 30 days 30 caps 6RF Coding Level of Care Code Est Pt Level 3 (04558) Diagnoses GERD (gastroesophageal reflux disease) K21.9 Constipation K59.00
[2023-06-24 09:24] VITALS: BP 118/65; PULSE 71; BMI 27.0
== END 2023-06-24 10:00 | disposition home or self-care (01) ==
PROVIDERS: Visit Provider Nurse Practitioner
DX: K21.9 Gastro-esophageal reflux disease without esophagitis (principal); K59.00 Constipation, unspecified
CPT/HCPCS: 99213

== ENCOUNTER → 2023-06-24 09:18 | Outpatient (BNVA) | payer OTHER, SELFPAY | PROVIDERS: Visit Provider Nurse Practitioner | DX: K21.9 Gastro-esophageal reflux disease without esophagitis (principal); K59.00 Constipation, unspecified | CPT/HCPCS: 99212 ==

== ENCOUNTER 2023-09-10 09:39 | Outpatient (REF) | payer OTHER, SELFPAY ==
[2023-09-10 12:00] LABS: Cholesterol 194 mg/dL (<200); HDL Cholesterol 49 mg/dL (>40); LDL Cholesterol Calculated 128 mg/dL (<100); Triglycerides 87 mg/dL (<150)
[2023-09-10 12:04] LABS: Anion Gap 12 (12-20); Blood Urea Nitrogen 27 mg/dL (9-16); Calcium 9.6 mg/dL (8.4-10.2); Carbon Dioxide 24 mmol/L (22-29); Chloride 109 mmol/L (96-108); Estimated Glomerular Filt Rate > 60; Glucose Random 93 mg/dL (60-115); Potassium 4.4 mmol/L (3.3-5.1); Sodium 141 mmol/L (135-145)
[2023-09-10 12:09] LABS: Vitamin D 25-OH Total 45.1 ng/mL (>30)
[2023-09-10 12:48] LABS: Reflex LDLD? No
== END 2023-09-10 09:40 | disposition home or self-care (01) ==
LOC: HO.HHCL 09:39
PROVIDERS: Visit Provider Internal Medicine
DX: R73.01 Impaired fasting glucose (principal); E55.9 Vitamin D deficiency, unspecified; E78.5 Hyperlipidemia, unspecified
CPT/HCPCS: 36415; 80048; 80061; 82306

== ENCOUNTER 2023-09-28 10:28 | Outpatient (REF) | payer OTHER, SELFPAY ==
--- NOTE | ~2023-09-28 | MM_ITS ---
EXAMINATION: MM SCREENING DIGITAL BREAST TOMOSYNTHESIS, BILATERAL CLINICAL INFORMATION: Screening. Asymptomatic. COMPARISON: Mammography: 09/26/2022, 09/24/2021, 09/24/2020, 09/23/2020, 09/20/2019 TECHNIQUE: Digital breast tomosynthesis is performed in both the craniocaudal and mediolateral oblique views along with computer-aided detection (CAD). Synthesized 2D images are generated from the tomosynthesis. FINDINGS: There are scattered areas of fibroglandular density (ACR BI-RADS breast composition Category b). There are bilateral skin calcifications. These are benign. There are no suspicious masses, suspicious grouped calcifications, or areas of architectural distortion in either breast. The parenchymal pattern is stable from prior exams. MM/MM tomosynthesis screening BI IMPRESSION: No mammographic evidence of malignancy. ASSESSMENT: BI-RADS BI-RADS 2 - Benign Findings RECOMMENDATION: Routine annual mammography screening. 1 year F/U This examination should not preclude the clinical evaluation of a suspicious palpable abnormality. This patient's information was entered into a reminder system with a target due date for their next mammogram.
== END 2023-09-28 10:29 | disposition home or self-care (01) ==
LOC: HO.MAMMO 10:28
PROVIDERS: PCP Internal Medicine; Visit Provider Internal Medicine
DX: Z12.31 Encounter for screening mammogram for malignant neoplasm of breast (principal)
CPT/HCPCS: 77063; 77067

== ENCOUNTER → 2023-09-28 11:30 | Outpatient (BNV) | payer OTHER, SELFPAY | PROVIDERS: PCP Internal Medicine; Visit Provider Radiology Diagnostic Radiology | DX: Z12.31 Encounter for screening mammogram for malignant neoplasm of breast (principal) | CPT/HCPCS: 77063; 77067 ==

== ENCOUNTER 2024-01-06 10:35 | Outpatient (AMB) | payer OTHER, SELFPAY ==
--- NOTE | 2024-01-06 10:39 | A.OFFVIS_ITS ---
Intake Vital Signs 01/06/24 10:40 Height 5 ft 1 in Weight 145 lb 8.081 oz BMI 27.5 BP 107/60 Blood Pressure Location Lt brachial Position Sitting Pulse 69 Intake Visit Reasons: 6 month follow up CIC, GERD Intake Note: Patient presents to in office visit today in 6 months follow up of GERD and CIC. CC: Patient reports she has been doing well and symptoms are well managed with medications prescribed. She denies any GI symptoms today. Substation Maintenance Technician Required: Yes Substation Maintenance Technician Name: susan Cline Accompanied by: surgical specialist Allergies No Known Allergies [No Known Allergies*] Allergy (Verified 01/06/24 10:43) HPI 6 month follow up CIC, GERD HPI Details Assessment & Plan (1) GERD (gastroesophageal reflux diseas e): Code(s): K21.9 - Gastro-esophageal reflux disease without esophagitis Plan: MALIAN #[id number] She says she continues to improve with her GI conditions. She continues on her protonix, senna and colace. She remains satisfied with her GI regimen. 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 She continues on her protonix, senna and colace. She remains satisfied with her GI regimen. Return office visit in 6 months [facility] Medical History Elevated cholesterol GERD (gastroesophageal reflux disease) HTN (hypertension) Impaired fasting glucose Insomnia Knee pain Surgical History H/O colonoscopy History of cholecystectomy History of hysterectomy Hx of varicose vein ligation Social History Patient Tobacco Use Status: Never used Tobacco Second Hand Smoke Exposure: No Review of Systems Const Denies fatigue, Denies fever(s), Denies night sweats, Denies poor appetite and Denies weight loss Eyes Details: glasses Reports requires corrective lenses ENT Reports Normal hearing present, Denies dental pain, Denies dysphagia, Denies hearing loss, Denies mouth pain, Denies odynophagia, Denies throat swelling, Denies tongue swelling and Reports other (Dentition adequate) Card Reports no additional complaints Resp Reports no additional complaints GI Details: Denies abdominal pain, Denies melena, Denies bloating, Denies hematochezia, Repo rts constipation, Denies GI cramping, Denies dysphagia, Denies excessive flatus, Denies early satiety, Reports heartburn, Denies diarrhea, Denies nausea, Denies odynophagia, Denies vomiting and Denies hematemesis Skin/Breast Denies pruritus, Denies lesions, Denies rash and Denies jaundice Neuro Reports Normal hearing present and Denies Abnormal speech present Endo Denies fatigue Aller/Immun Denies throat swelling and Denies tongue swelling Physical Exam Vital Signs: Last Vital Signs Pulse 69 01/06/24 10:40 BP 107/60 01/06/24 10:40 BMI result Body Mass Index 27.5 Const General: cooperative, no acute distress, well developed and well groomed Nutritional Appearance: well nourished and overweight Orientation/consciousness: oriented to person, oriented to place and oriented to time Limitations: language barrier HEENT Head: Yes normocephalic and Yes atraumatic Eyes General: appearance normal, both eyes and all related structures Pupils: Equal, round and reactive pupils present Neck Neck: Yes normal visual inspection and Yes no lymphadenopathy Thyroid: Thyroid normal Resp Effort & Inspection: normal respiratory effort and able to speak in complete sentences Auscultation: clear to auscultation bilaterally Cardio Rate: regular rate Rhythm: regular rhythm Heart sounds: Normal, physiologic split S2 sound present Peripheral pulses: radial pulses present and posterior tibial pulses present GI Inspection: No distended, No Abdominal panniculus present and Yes obesity Palpation (GI): Soft to palpation, nontender, no guarding, not rigid and No hepatosplenomegaly present Percussion: Yes normal to percussion Auscultation: normal bowel sounds Rectal Exam - Female: deferred Skin General skin exam: no rashes or lesions noted, turgor normal, skin not dry, no jaundice, No spider nevi and no striae Rashes: no rashes Nails: normal Neuro General: oriented to person, oriented to place and oriented to time Cranial nerves: Yes Equal, round and reactive pupils present and Yes Normal hearing present Speech: No Abnormal speech present Extrem General: Yes normal to inspection, No clubbing, No cyanosis and No edema Psych Appearance: grossly normal and well kempt Mental Status: mental status grossly normal Speech and movement: Normal speech and movement present Affect: normal affect Attitude: cooperative Thought process: Normal thought process present and not confabulating Thought content: Normal thought content present Insight: Limited insight present (Psych) Judgement: Limited judgement present (Psych) Assessment & Plan Assessment & Plan (1) GERD (gastroesophageal reflux disease): Code(s): K21.9 - Gastro-esophageal reflux disease without esophagitis (2) Constipation: Code(s): K59.00 - Constipation, unspecified (3) Tubular adenoma of colon: Comment: 2021 scope= 2 TA repeat 5 years Code(s): D12.6 - Benign neoplasm of colon, unspecified Plan MALIAN #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 She continues on her protonix, senna and colace. She remains satisfied with her GI regimen. Return office visit in 6 months Medications: Refilled pantoprazole (Protonix) 40 mg PO DAILY 30 days 30 tabs 6RF K21.9 - Gastro- esophageal reflux disease without esophagitis sennosides (Shamika-crissy) 17.2 mg (2 x 8.6 mg) PO BEDTIME 60 tabs 6RF K59.00 - Constipation, unspecified docusate sodium (Colace) 100 mg PO .DAILY WITH FOOD 30 days 30 caps 6RF Coding Level of Care Code Est Pt Level 3 (91459) Diagnoses GERD (gastroesophageal reflux disease) K21.9 Constipation K59.00 Tubular adenoma of colon D12.6
[2024-01-06 10:40] VITALS: BP 107/60; PULSE 69; BMI 27.5
== END 2024-01-06 11:41 | disposition home or self-care (01) ==
PROVIDERS: PCP Internal Medicine; Visit Provider Nurse Practitioner
DX: K21.9 Gastro-esophageal reflux disease without esophagitis (principal); K59.00 Constipation, unspecified; D12.6 Benign neoplasm of colon, unspecified
CPT/HCPCS: 99213

== ENCOUNTER → 2024-01-06 10:35 | Outpatient (BNVA) | payer OTHER, SELFPAY | PROVIDERS: PCP Internal Medicine; Visit Provider Nurse Practitioner | DX: K21.9 Gastro-esophageal reflux disease without esophagitis (principal); K59.00 Constipation, unspecified; D12.6 Benign neoplasm of colon, unspecified | CPT/HCPCS: 99212 ==

== ENCOUNTER 2024-02-03 14:59 | Outpatient (AMB) | payer OTHER, SELFPAY ==
[2024-02-03 15:03] VITALS: BMI 27.4
--- NOTE | 2024-02-03 15:03 | A.OFFVIS_ITS ---
Intake Vital Signs 02/03/24 15:03 Height 5 ft 1 in Weight 145 lb BMI 27.4 Intake Visit Reasons: Leg Pain, s/p right gsv venaseal on 07/17/22 Intake Note: PRN pt s/p Right GSV Venaseal 07/17/2022 and Left GSV RFA 05/01/22, pt states that Joon PERKINS is painfuil since october 2023. Pt states she has a sharp pain(screws) in her ankle and bottom of her feet and pain on the back part of her knee. Automobile Damage Appraiser Required: Yes Automobile Damage Appraiser Language: Welt Butter Hand Name: Clarke [id number] Information Interpreted: non-clinical & clinical Allergies No Known Allergies [No Known Allergies*] Allergy (Verified 02/03/24 15:11) HPI Leg Pain, s/p right gsv venaseal on 07/17/22 HPI Details Complex 68-year-old female presents for evaluation regarding left foot pain. She had prior venous procedures by us. She requested an urgent visit due to left foot pain. She reports that it is a pressure pinpoint tenderness on the left heel. She has generalized foot pain. She now presents to us for vascular evaluation. [facility] Medical History Knee pain Impaired fasting glucose Insomnia GERD (gastroesophageal reflux disease) Elevated cholesterol HTN (hypertension) Surgical History Hx of varicose vein ligation H/O colonoscopy History of hysterectomy History of cholecystectomy Social History Patient Tobacco Use Status: Never used Tobacco Second Hand Smoke Exposure: No Review of Systems Const All systems reviewed & are unremarkable except as noted in HPI and below Reports no additional complaints ENT Reports Normal hearing present Card Denies chest pain, Denies chest pain at rest, Denies chest pain with activity and Denies pedal edema Resp Denies cough GI Denies abdominal pain Musc Denies abnormal gait, Denies muscle cramps and Denies radiating pain into limb Skin/Breast Denies skin ulcer and Denies wounds Neuro Reports Normal hearing present and Denies abnormal gait Psych Reports no additional complaints Physical Exam Vital Signs: BMI result Body Mass Index 27.4 Const General: cooperative, healthy appearing and comfortable Orientation/consciousness: oriented to person, oriented to place and oriented to time HEENT Head: Yes normal to inspection Neck Neck: Yes normal visual inspection Carotids: no bruits Chest Chest palpation & inspection: normal inspection of the chest Resp Effort & Inspection: normal respiratory effort and able to speak in complete sentences Auscultation: clear to auscultation bilaterally, no crackles, no rales, no rhonchi and no wheezes Cardio Rate: regular rate Rhythm: regular rhythm Heart sounds: S1 normal heart sound present and S2 normal heart sound present Bruits: no carotid bruits Peripheral pulses: Peripheral pulses 2+ throughout GI Inspection: Yes normal to inspection Skin Wounds: no wounds Hair: normal Neuro General: oriented to person, oriented to place and oriented to time Cranial nerves: Yes CN's II-XII intact bilaterally and Yes Normal hearing present Cognition (Neuro): normal cognition Motor exam (neuro): 5/5 motor strength present throughout Extrem Other: venous exam: No significant superficial varicosities or spider telangiectasias, minimal edema General: No clubbing, No cyanosis and No edema Psych Appearance: grossly normal Mental Status: mental status grossly normal Speech and movement: Normal speech and movement present Assessment & Plan Assessment & Plan (1) Left foot pain: Code(s): M79.672 - Pain in left foot Plan: In short patient has left foot pain. This does not appear to be arterial in nature as she does have palpable pulses. From a venous standpoint she does not have significant swelling. When palpating that left foot she did have pinpoint tenderness on the heel. I do believe this may be more of a bone spur or podiatric in nature. I did suggest that she would be best served by a podiatry evaluation. This does not appear to be vascular in nature. I did request that she reach out to her primary care team for a podiatry referral. She will follow up with us on an as-needed basis. Thank you for allowing us to assist in her care. Coding Level of Care Code Est Pt Level 3 (12855) Diagnoses Left foot pain M79.672
== END 2024-02-03 16:06 | disposition home or self-care (01) ==
PROVIDERS: PCP Internal Medicine; Visit Provider Surgery Vascular Surgery
DX: M79.672 Pain in left foot (principal)
CPT/HCPCS: 99213

== ENCOUNTER → 2024-02-03 14:59 | Outpatient (BNVA) | payer OTHER, SELFPAY | PROVIDERS: PCP Internal Medicine; Visit Provider Surgery Vascular Surgery | DX: M79.672 Pain in left foot (principal) | CPT/HCPCS: 99212 ==

== ENCOUNTER 2024-03-24 08:39 | Outpatient (REF) | payer OTHER, SELFPAY ==
--- NOTE | ~2024-03-24 | XR_ITS ---
EXAMINATION: XR FOOT, LEFT CLINICAL INFORMATION: Left foot pain, left heel pain COMPARISON: None available. TECHNIQUE: AP, lateral, and oblique views of the left foot. FINDINGS: The bones and soft tissues are normal. No fracture. Alignment is anatomic. Joint spaces are maintained. In particular, the calcaneus and talus are unremarkable as are the plantar soft tissues. XR/XR foot LT min 3V IMPRESSION: Unremarkable plain radiographs of the left foot
== END 2024-03-24 08:40 | disposition home or self-care (01) ==
LOC: HO.HHCX 08:39
PROVIDERS: Visit Provider Internal Medicine
DX: M79.672 Pain in left foot (principal)
CPT/HCPCS: 73630

== ENCOUNTER 2024-07-06 11:33 | Outpatient (AMB) | payer OTHER, SELFPAY ==
--- NOTE | 2024-07-06 11:42 | MHC.OFFVIS ---
Vital Signs 07/06/24 11:43 Height 5 ft 1 in Weight 146 lb 6.191 oz BMI 27.7 BP 109/68 Blood Pressure Location Lt brachial Position Sitting Pulse 65 Intake Visit Reasons: 6 month follow up Intake Note: Patient presents in office today for 6 months follow up. Allergies No Known Allergies [No Known Allergies*] Allergy (Verified 02/03/24 15:11) HPI HPI 6 month follow up: Details: Assessment & Plan (1) GERD (gastroesophageal reflux disease): Code(s): K21.9 - Gastro-esophageal reflux disease without esophagitis Plan: ANDORRAN #[id number] She says she continues to improve with her GI conditions. She continues on her protonix, senna and colace. She remains satisfied with her GI regimen. 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 She continues on her protonix, senna and colace. She remains satisfied with her GI regimen. Offered 1 year follow up, but she would prefer 6 mos. [facility] Medical History Knee pain Impaired fasting glucose Insomnia GERD (gastroesophageal reflux disease) Elevated cholesterol HTN (hypertension) Surgical History Hx of varicose vein ligation H/O colonoscopy History of hysterectomy History of cholecystectomy Social History Patient Tobacco Use Status: Never used Tobacco Second Hand Smoke Exposure: No Review of Systems Const Denies fatigue, Denies fever(s), Denies night sweats, Denies poor appetite and Denies weight loss Eyes Details: glasses Reports requires corrective lenses ENT Reports Normal hearing present, Denies dental pain, Denies dysphagia, Denies hearing loss, Denies mouth pain, Denies odynophagia, Denies throat swelling, Denies tongue swelling and Reports other (Dentition adequate) Card Reports no additional complaints Resp Reports no additional complaints GI Details: Denies abdominal pain, Denies melena, Reports bloating, Denies hematochezia, Reports constipation, Denies GI cramping, Denies dysphagia, Denies excessive flatus, Denies early satiety, Reports heartburn, Denies diarrhea, Denies nausea, Denies odynophagia, Denies vomiting and Denies hematemesis Skin/Breast Denies pruritus, Denies lesions, Denies rash and Denies jaundice Neuro Reports Normal hearing present and Denies Abnormal speech present Endo Denies fatigue Aller/Immun Denies throat swelling and Denies tongue swelling Physical Exam Vital Signs: Last Vital Signs Pulse 65 07/06/24 11:43 BP 109/68 07/06/24 11:43 BMI result Body Mass Index 27.7 Const General: cooperative, no acute distress, well developed and well groomed Nutritional Appearance: average body habitus and well nourished Orientation/consciousness: oriented to person, oriented to place and oriented to time Limitations: language barrier HEENT Head: Yes normocephalic and Yes atraumatic Eyes General: appearance normal, both eyes and all related structures Pupils: Equal, round and reactive pupils present Neck Neck: Yes normal visual inspection and Yes no lymphadenopathy Thyroid: Thyroid normal Resp Effort & Inspection: normal respiratory effort and able to speak in complete sentences Auscultation: clear to auscultation bilaterally Cardio Rate: regular rate Rhythm: regular rhythm Heart sounds: Normal, physiologic split S2 sound present Peripheral pulses: radial pulses present and posterior tibial pulses present GI Inspection: No distended and No Abdominal panniculus present Palpation (GI): Soft to palpation, nontender, no guarding, not rigid and No hepatosplenomegaly present Percussion: Yes normal to percussion Auscultation: normal bowel sounds Rectal Exam - Female: deferred Skin General skin exam: no rashes or lesions noted, turgor normal, skin not dry, no jaundice, No spider nevi and no striae Rashes: no rashes Nails: normal Neuro General: oriented to person, oriented to place and oriented to time Cranial nerves: Yes Equal, round and reactive pupils present and Yes Normal hearing present Speech: No Abnormal speech present Extrem General: Yes normal to inspection, No clubbing, No cyanosis and No edema Psych Appearance: grossly normal and well kempt Mental Status: mental status grossly normal Speech and movement: Normal speech and movement present Affect: normal affect Attitude: cooperative Thought process: Normal thought process present and not confabulating Thought content: Normal thought content present Insight: Fair insight present (Psych) Judgement: Fair judgement present (Psych) Assessment & Plan Assessment & Plan (1) GERD (gastroesophageal reflux disease): Code(s): K21.9 - Gastro-esophageal reflux disease without esophagitis Category: Medical (2) Constipation: Code(s): K59.00 - Constipation, unspecified Category: Medical Plan ANDORRAN #pt 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 She continues on her protonix, senna and colace. She remains satisfied with her GI regimen. Offered 1 year follow up, but she would prefer 6 mos. Medications: Refilled sennosides (Shamika-crissy) 17.2 mg (2 x 8.6 mg) PO BEDTIME 60 tabs 6RF K59.00 - Constipation, unspecified pantoprazole (Protonix) 40 mg PO DAILY 30 tabs 6RF 30 days K21.9 - Gastro-esophageal reflux disease without esophagitis docusate sodium (Colace) 100 mg PO .DAILY WITH FOOD 30 caps 6RF 30 days Coding Level of Care Code Est Pt Level 3 (25955) Diagnoses GERD (gastroesophageal reflux disease) K21.9 Constipation K59.00
[2024-07-06 11:43] VITALS: BP 109/68; PULSE 65; BMI 27.7
== END 2024-07-06 12:13 | disposition home or self-care (01) ==
PROVIDERS: PCP Internal Medicine; Visit Provider Nurse Practitioner
DX: K21.9 Gastro-esophageal reflux disease without esophagitis (principal); K59.00 Constipation, unspecified
CPT/HCPCS: 99213

== ENCOUNTER → 2024-07-06 11:33 | Outpatient (BNVA) | payer OTHER, SELFPAY | PROVIDERS: PCP Internal Medicine; Visit Provider Nurse Practitioner | DX: K21.9 Gastro-esophageal reflux disease without esophagitis (principal); K59.00 Constipation, unspecified | CPT/HCPCS: 99212 ==

== ENCOUNTER 2024-07-19 10:00 | Outpatient (RCR) | payer OTHER, SELFPAY | END 2024-07-19 11:24 | disposition home or self-care (01) | LOC: HO.PT 10:00 | PROVIDERS: PCP Internal Medicine; Visit Provider Podiatrist Foot & Ankle Surgery | DX: M72.2 Plantar fascial fibromatosis (principal) | CPT/HCPCS: 97035; 97110; 97112; 97140; 97161 ==

== ENCOUNTER 2024-09-11 10:17 | Outpatient (REF) | payer OTHER, SELFPAY ==
[2024-09-11 13:41] LABS: Alanine Aminotransferase 16 U/L (0-31); Anion Gap 14 (12-20); Aspartate Amino Transferase 29 U/L (5-31); Bilirubin Total 0.3 mg/dL (0.0-1.0); Blood Urea Nitrogen 20 mg/dL (9-16); Calcium 9.4 mg/dL (8.4-10.2); Carbon Dioxide 23 mmol/L (22-29); Chloride 109 mmol/L (96-108); Cholesterol 193 mg/dL (<200); Estimated Glomerular Filt Rate > 60; Glucose Random 91 mg/dL (60-115); HDL Cholesterol 51 mg/dL (>40); LDL Cholesterol Calculated 125 mg/dL (<100); Potassium 4.6 mmol/L (3.3-5.1); Sodium 141 mmol/L (135-145); Total Protein 7.5 g/dL (6.5-8.0); Triglycerides 88 mg/dL (<150); Vitamin D 25-OH Total 50.6 ng/mL (>30)
[2024-09-11 15:14] LABS: Reflex LDLD? No
[2024-09-11 15:36] LABS: Alkaline Phosphatase 78 U/L (39-117)
[2024-09-13 23:49] LABS: TS Negative Control Passed; TS Panel A 0; TS Panel B 0; TS Positive Control Passed; TSpotTB Negative (Negative)
== END 2024-09-11 10:18 | disposition home or self-care (01) ==
LOC: HO.HHCL 10:17
PROVIDERS: Visit Provider Internal Medicine
DX: I10 Essential (primary) hypertension (principal); E55.9 Vitamin D deficiency, unspecified; Z11.1 Encounter for screening for respiratory tuberculosis
CPT/HCPCS: 36415; 80053; 80061; 82306; 86481

== ENCOUNTER 2024-10-03 10:21 | Outpatient (REF) | payer OTHER, SELFPAY ==
--- NOTE | ~2024-10-03 | MM_ITS ---
EXAMINATION: MM SCREENING DIGITAL BREAST TOMOSYNTHESIS, BILATERAL CLINICAL INFORMATION: Screening. Asymptomatic. COMPARISON: Mammography: Comparison is made with available priors TECHNIQUE: Digital breast mammography with tomosynthesis is performed in both the craniocaudal and mediolateral oblique views along with computer-aided detection (CAD). FINDINGS: There are scattered areas of fibroglandular density (ACR BI-RADS breast composition Category b). There are no significant masses, abnormal calcifications, or other abnormalities. MM/MM tomosynthesis screening BI IMPRESSION: No mammographic evidence of malignancy. ASSESSMENT: BI-RADS BI-RADS 1 - Negative RECOMMENDATION: Routine annual mammography screening. 1 year F/U This examination should not preclude the clinical evaluation of a suspicious palpable abnormality. This patient's information was entered into a reminder system with a target due date for their next mammogram. Electronically signed by: Stephenie New DO 10/12/2024 12:18 PM JOSE
== END 2024-10-03 10:22 | disposition home or self-care (01) ==
LOC: HO.MAMMO 10:21
PROVIDERS: PCP Internal Medicine; Visit Provider Internal Medicine
DX: Z12.31 Encounter for screening mammogram for malignant neoplasm of breast (principal)
CPT/HCPCS: 77063; 77067

== ENCOUNTER → 2024-10-03 10:30 | Outpatient (BNV) | payer OTHER, SELFPAY | PROVIDERS: PCP Internal Medicine; Visit Provider Internal Medicine | DX: Z12.31 Encounter for screening mammogram for malignant neoplasm of breast (principal) | CPT/HCPCS: 77063; 77067 ==

== ENCOUNTER 2025-03-06 09:27 | Outpatient (AMB) | payer OTHER, SELFPAY ==
--- NOTE | 2025-03-06 09:32 | MHC.OFFVIS ---
Vital Signs 03/06/25 09:33 Height 5 ft 1 in Weight 141 lb 1.533 oz BMI 26.7 BP 105/56 L Blood Pressure Location Lt brachial Position Sitting Pulse 74 Intake Visit Reasons: 8 months follow up Intake Note: Venus presents in the office as a 8 month follow up. CC: She states that she is not having any concerns today. Commercial Loan Specialist Required: Yes Allergies No Known Allergies [No Known Allergies*] Allergy (Verified 03/06/25 09:34) HPI HPI 8 months follow up: Details: Assessment & Plan (1) GERD (gastroesophageal reflux disease): Code(s): K21.9 - Gastro-esophageal reflux disease without esophagitis Category: Medical (2) Constipation: Code(s): K59.00 - Constipation, unspecified Category: Medical Plan [place]OT[place] #danica brings professional security system sales consultant with her. She continues on her protonix, senna and colace. She remains satisfied with her GI regimen. Offered 1 year follow up, but she would prefer 6 mos. Medications: Refilled sennosides (Shamika-crissy) 17.2 mg (2 x 8.6 mg) PO BEDTIME 60 tabs 6RF K59.00 - Constipation, unspecified pantoprazole (Protonix) 40 mg PO DAILY 30 tabs 6RF 30 days K21.9 - Gastro-esophageal reflux disease without esophagitis docusate sodium (Colace) 100 mg PO .DAILY WITH FOOD 30 caps 6RF 30 days TODAY'S VISIT [place] #Louise Live She is doing generally well, but she had some discomfort a few days ago when she ate something with onions. We discuss that this is a known trigger food for GERD. She continues on her protonix, senna and colace. She requests education on reasons for EGD and hemorrhoids. She is aware that she will be due for repeat colonoscopy in 2026. ROV 6 mos. PFSH Medical History Knee pain Impaired fasting glucose Insomnia GERD (gastroesophageal reflux disease) Elevated cholesterol HTN (hypertension) Surgical History Hx of varicose vein ligation H/O colonoscopy History of hysterectomy History of cholecystectomy Social History Patient Tobacco Use Status: Never used Tobacco Second Hand Smoke Exposure: No Review of Systems Const Denies fatigue, Denies fever(s), Denies night sweats, Denies poor appetite and Denies weight loss Eyes Details: glasses Reports requires corrective lenses ENT Reports Normal hearing present, Denies dental pain, Denies dysphagia, Denies hearing loss, Denies mouth pain, Denies odynophagia, Denies throat swelling, Denies tongue swelling and Reports other (Dentition adequate) Card Reports no additional complaints Resp Reports no additional complaints GI Details: Denies abdominal pain, Denies melena, Denies bloating, Denies hematochezia, Reports constipation, Denies GI cramping, Denies dysphagia, Denies excessive flatus, Denies early satiety, Reports heartburn, Denies diarrhea, Denies nausea, Denies odynophagia, Denies vomiting and Denies hematemesis Skin/Breast Denies pruritus, Denies lesions, Denies rash and Denies jaundice Neuro Reports Normal hearing present and Denies Abnormal speech present Endo Denies fatigue Aller/Immun Denies throat swelling and Denies tongue swelling Physical Exam Vital Signs: Last Vital Signs Pulse 74 03/06/25 09:33 BP 105/56 L 03/06/25 09:33 BMI result Body Mass Index 26.7 Const General: cooperative, no acute distress, well developed and well groomed Nutritional Appearance: well nourished and overweight Orientation/consciousness: oriented to person, oriented to place and oriented to time Limitations: language barrier HEENT Head: Yes normocephalic and Yes atraumatic Eyes General: appearance normal, both eyes and all related structures Pupils: Equal, round and reactive pupils present Neck Neck: Yes normal visual inspection and Yes no lymphadenopathy Thyroid: Thyroid normal Resp Effort & Inspection: normal respiratory effort and able to speak in complete sentences Auscultation: clear to auscultation bilaterally Cardio Rate: regular rate Rhythm: regular rhythm Heart sounds: Normal, physiologic split S2 sound present Peripheral pulses: radial pulses present and posterior tibial pulses present GI Inspection: No distended, No Abdominal panniculus present and Yes obesity Palpation (GI): Soft to palpation, nontender, no guarding, not rigid and No hepatosplenomegaly present Percussion: Yes normal to percussion Auscultation: normal bowel sounds Rectal Exam - Female: deferred Skin General skin exam: no rashes or lesions noted, turgor normal, skin not dry, no jaundice, No spider nevi and no striae Rashes: no rashes Nails: normal Neuro General: oriented to person, oriented to place and oriented to time Cranial nerves: Yes Equal, round and reactive pupils present and Yes Normal hearing present Speech: No Abnormal speech present Extrem General: Yes normal to inspection, No clubbing, No cyanosis and No edema Psych Appearance: grossly normal and well kempt Mental Status: mental status grossly normal Speech and movement: Normal speech and movement present Affect: normal affect Attitude: cooperative Thought process: Normal thought process present and not confabulating Thought content: Normal thought content present Insight: Good insight present (Psych) Judgement: Good judgement present (Psych) Assessment & Plan Assessment & Plan (1) GERD (gastroesophageal reflux disease): Code(s): K21.9 - Gastro-esophageal reflux disease without esophagitis Category: Medical (2) Constipation: Code(s): K59.00 - Constipation, unspecified Category: Medical Plan [place] #Louise Omer She is doing generally well, but she had some discomfort a few days ago when she ate something with onions. We discuss that this is a known trigger food for GERD. She continues on her protonix, senna and colace. She requests education on reasons for EGD and hemorrhoids. She is aware that she will be due for repeat colonoscopy in 2026. ROV 6 mos. Medications: Refilled pantoprazole 40 mg PO DAILY 30 tabs 6RF K21.9 - Gastro-esophageal reflux disease without esophagitis sennosides (senna) 17.2 mg (2 x 8.6 mg) PO BEDTIME 60 tabs 6RF K59.00 - Constipation, unspecified docusate sodium 100 mg PO DAILY 30 caps 6RF Coding Level of Care Code Est Pt Level 3 (40796) Diagnoses GERD (gastroesophageal reflux disease) K21.9 Constipation K59.00
[2025-03-06 09:33] VITALS: BP 105/56; PULSE 74; BMI 26.7
--- OUTSIDE RECORDS SUMMARY | 2025-03-06 10:21 | XMS_ITS | Clinical Summary ---
Author Organization [email or web address] Address [address] [place] [address] 7[address] [place] [address] Care Team Providers Care Award Machine Operator Name Role Phone Darline Finnegan MD Primary Care Provider + Allergies No known active allergies Medications Diclofenac Sodium 1 % gelIndications:L ow back pain, unspecified back pain laterality, unspecified chronicity, unspecified whether sciatica present APPLY 2 GRAMS TOPICALLY TO AFFECTED AREA(S) FOUR TIMES DAILY 100 g 1 3 Active Lancets (OneTouch Delica Plus [id number]) misc USE DIRECTED TO TEST BLOOD SUGAR TWICE DAILY 100 each 11 3 Active Blood Glucose Monitoring Suppl (ONE TOUCH ULTRA 2) w/Device kitIndications:I FG (impaired fasting glucose) Use to test blood sugar two times daily 1 kit 3 Active losartan (Cozaar) 50 MG tablet TAKE 1 TABLET BY MOUTH EVERY DAY 90 tablet 1 4 Active Calcium 500 + D 500-3.125 MG-MCG tablet TAKE 1 TABLET BY MOUTH EVERY DAY 30 tablet 11 4 Active ciclopirox (Penlac) 8 % solutionIndicati ons:Onychomycosi s of great toe APPLY TOPICALLY TO THE AFFECTED AREA(S) EVERY DAY AT BEDTIME DIRECTED 6.6 mL 3 5 Active glucose blood (OneTouch Ultra) test stripIndications :IFG (impaired fasting glucose) USE TO TEST BLOOD SUGAR TWICE DAILY 100 each 11 5 Active Active Problems Problem Noted Date Diagnosed Date Dietary counseling 06/15/2024 Exercise counseling 06/15/2024 Screening-pulmonary TB 03/10/2024 Assessment & Plan (09/18/2024 8:53 PM EST): Neg T-spot, no evidence of TB. Assessment & Plan (03/10/2024 4:31 PM EDT): Order TB Left foot pain 03/10/2024 Assessment & Plan (06/15/2024 1:53 PM EDT): Improving sp PT/ Continue fu by podiatry. 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 Declined Influenza and Covid IZ. She's advised to get PCV20 and RSV as well, declined. Mammogram is due next month, will fu at next appt if it hasn't been done. 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 Assessment & Plan (09/16/2023 10:52 AM EST): Discussed with patient re increase fresh fruit and vegetable intake. Counseled re moderate exercise as tolerated, up to 20min/d Patient feels safe at home. PAP smear no applicable, she does need any longer due to age Mammogram Due, isak next week Bone density test up to date, next one due 2024 Cont Vit-D supplementation Eye exam Up to date She will make isak with new trestle mechanic [facility], she will let me know if she need referral CRC screen up to date, next one due 2023. Lipids/FBS up to date, will repeat lipids in 1 yr Vaccinations decline PCV and Flu IZ today, agreed to have Covid IZ in walk in IZ clinic Dental visit up to date, next one due 12/2023 Post-menopause 09/16/2023 Assessment & Plan (09/16/2023 10:51 AM EST): She reports mild dryness which is not an issue for her Advised to use vaginal gels or vaginal estrogen cream but she declined FU PRN Onychomycosis of great toe 09/16/2023 Assessment & Plan (09/16/2023 10:49 AM EST): In both great toes Use Penlac lotion of effected areas I told her it may or may not be covered by insurance Fu prn Nevus 09/16/2023 Assessment & Plan (09/16/2023 10:49 AM EST): Seems to be benign Refer to dermatology for routine skin evaluation, r/u neoplasm Spasm of thoracic back muscle 02/08/2023 Assessment & Plan (09/18/2024 8:51 PM EST): Advised to apply heat to affected area + tylenol 500mg q6h prn pain Advised to come to acupuncture clinic, info given to patient. Advised re stretching exercises. Re consult prn, consider PT. Assessment & Plan (06/15/2023 10:48 AM EDT): Resolved s/p PT Continue NSAIDS PRN and daily exercise, counseled regarding weight reduction reconsult PRN Assessment & Plan (02/08/2023 11:31 AM EDT): Recommended stretching exercsies, heat to affected area and use diclofenac gel BID x2 weeks use Tylenol BID x2 weeks and then PRN Discussed with patient treatment options, she wants to start PT and FU in 3 months Primary hypertension 02/08/2023 Assessment & Plan (09/18/2024 8:50 PM EST): Controlled. Compliant w/meds Continue losartan same dose Counseled re low salt diet/increase moderate physical activity. Check home BP BIW and prn CP/MORRIS/LO Non smoking patient. FU 6m Assessment & Plan (06/15/2024 1:55 PM EDT): Controlled. Compliant w/meds Continue losartan 50mg/d Counseled re low salt diet/increase moderate physical activity. Check home BP BIW and prn CP/MORRIS/LO Non smoking patient. Order labs prior to next appt, FU with me in 3-4m Assessment & Plan (02/08/2023 11:32 AM EDT): Controlled. BP is at goal. Continue Losartan. Counseled re low salt diet/increase moderate physical activity. Check home BP BIW and prn CP/MORRIS/LO Non smoking patient. 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 I have discussed with patient regarding increasing physicial activity and decrease calorie intake I'll check FBS with next set of labs. To check RBS at next visit. FU with me in 6m Assessment & Plan (03/10/2024 4:31 PM EDT): I have discussed with patient regarding increasing physicial activity and decrease calorie intake I'll check FBS with next set of labs. To check RBS at next visit. FU with me next visit Assessment & Plan (09/16/2023 10:48 AM EST): Controlled, A1c is 5.9 Counseled re more frequent low calorie/carb meals. Encouraged physical activity as tolerated. FU in PRN Assessment & Plan (02/08/2023 11:30 AM EDT): A1C is at goal. I have discussed with patient regarding increasing physicial activity and decrease calorie intake I'll check FBS with next set of labs. To check RBS at next visit. FU with me next visit I will contact dietitian to scheduled appointment with pt Hyperlipidemia 01/07/2023 Assessment & Plan (09/16/2023 10:53 AM EST): We discussed re rx options. She wants to be more strict with life style modifications. Recommended moderate amount of exercise and increased consumption of fruit, vegetables, fish and high fiber foods. We discussed about avoiding consumption of highly saturated fats or trans fats. She will continue OTC fish oil that she ahs taken for more than 5 yrs now. FU lipids in 6m History of hysterectomy for benign disease 01/07 Candidal intertrigo 01/07/2023 Backache 01/07/2023 Encounters Date Type Department Care Team Description 01/30/2025 Refill [facility] [address] [place], [place] [phone] Darline Finnegan MD IFG (impaired fasting glucose) 01/25/2025 Refill [facility] [address] [place], [place] [phone] Darline Finnegan MD Onychomycosis of great toe 12/28/2024 Telephone [facility] [address] [place], [place] [phone] Darline Finnegan MD May recall from Last 3 Months Immunizations Name Administration Dates Next Due Hep B, adult 01/04/2023,07/28/2022,06/24/2022 Pfizer Covid-19 Vaccine 12+ 10/23/2024, Tdap 07/09/2022 Zoster, Recombinant 08/26/2022,06/24/2022 Social History Tobacco Use Types Packs/Day Years Used Date Smoking Tobacco: Never Smokeless Tobacco: Never Tobacco Cessation:Counseling Given: Not Answered Alcohol Use Standard Drinks/Week Comments Never 0 (1 standard drink = 0.6 oz pur e alcohol) Depression Answer Date Recorded Patient Health Questionnaire-9 Score 0 02/08/2023 Housing Stability Answer Date Recorded What is your housing situation today? I have aram ambrose 06/06/[address] you li ve. Do you have problems with any of the following? None of the above 06/06/2024 Food Insecurity Answer Date Recorded Within the past 12 months, y ou worried that your food would run out before you got money to buy more: Never True 06/06/2024 Within the past 12 months,th e food you bought just didn't last and you didn't have enough money to get more: Never True Transportation Answer Date Recorded In the past 12 months, has l ack of transportation kept you from medical appts, meetings, work or from getting things needed for daily living? No 06/06/2024 Utilities Answer Date Recorded In the past 12 months, has t he electric, gas, oil or water company threatened to shut off services in your home? No 06/06/2024 Depression Answer Date Recorded Patient Health Questionnaire-2 Score 0 02/08/2023 Internet Access Answer Date Recorded Internet Access Q1 Yes 07/10/2024 Internet Access Q2 Not on file 07/10/2024 Comments Unknown Sex and Gender Information Value Date Recorded Sex Assigned at Female 09/07/2022 10:35 AM EDT Legal Sex Female 10:35 AM EDT Gender Identity Female 09/07/2022 10:35 AM EDT Sexual Orientation Straight 09/07/2022 10 :35 AM EDT Last Filed Vital Signs Vital Sign Reading Time Taken Comments Blood Pressure 132/73 11/17/2024 1:51 PM EST Pulse 90 11/17/2024 1:51 PM EST Temperature 36.7 ??C (98.1 ??F) 11/17/2024 1:51 PM ES T Respiratory Rate 16 11/17/2024 1:51 PM EST Oxygen Saturation 98% 11/17/2024 1:51 PM EST Inhaled Oxygen Concentration - - Weight 66.2 kg (146 lb) 11/17/2024 1:51 PM EST Height 154.9 cm (5' 1 ) 09/18/2024 9:49 AM EST Body Mass Index 27.59 09/18/2024 9:49 AM EST Plan of Treatment Upcoming Encounters Date Type Department Care Team (Late st Contact Info) Description 03/19/2025 9:45 AM EDT Office Visit [facility] [address] [place] [address] Darline Finnegan MD [address] [place], [place] [phone] Health Maintenance Due Date Last Done Comments CT Colonography 1955 FIT DNA/Cologuard 1955 FIT 1955 FOBT 1955 Sigmoidoscopy 1955 Alcohol/Substance Use Screening 1967 Hepatitis C Screening 1973 Pneumococcal Vaccine: 50+ Years (1 of 1 - PCV) 2005 Depression Screening 02/09/2024 02/08/2023, 02/09/20 23 Influenza Vaccine (#1) 2024 SDOH Screening 06/06/2025 06/06/2024 Diabetes: Hemoglobin A1C 09/18/2025 024, 03/10/2024, 09/16/2023, Additional history exists Mammogram 10/03/2025 10/03/2024, 09/09, 09/25/2022, Additional history exists Tobacco Screening 11/17/2025 11/17/2024 Colonoscopy 12/22/2026 12/22/2021 Colorectal Cancer Screening 12/22/2026 Lipid Panel 09/11/2029 09/11/2024, 11/0 01/2023, 05/20/2022, Additional history exists RSV Patients and Patients Aged 60 years or older (1 - 1-dose 75+ series) 2030 DTaP/Tdap/Td Vaccines (2 - Td or Tdap) 07/09/2032 07/09/2022 Zoster Vaccines Completed 08/26/2022, 06/24/2022 Hepatitis B Vaccines Completed 01/04/2023, 07/28/2022, 06/24/2022 COVID-19 Vaccine Completed 10/23/2024, 02/2023, 09/29/2022, Additional history exists HIB Vaccines Aged Out No longer eligi ble based on patient's age to complete this topic HPV Vaccines Aged Out No longer eligi ble based on patient's age to complete this topic Hepatitis A Vaccines Aged Out No long er eligible based on patient's age to complete this topic IPV Vaccines Aged Out No longer eligi ble based on patient's age to complete this topic Meningococcal Vaccine Aged Out No chrissy manuel eligible based on patient's age to complete this topic RSV under 20 months Aged Out No longe r eligible based on patient's age to complete this topic Rotavirus Vaccines Aged Out No longer eligible based on patient's age to complete this topic Procedures Procedure Name Priority Date/Time Associated Diagnosis Comments BI MAMMOGRAM SCREENING TOMOSYNTHESIS BILATERAL Routine 10/03/2024 10:30 AM EST POCT GLYCATED HEMOGLOBIN, TOTAL Routine 09/18/2024 9:58 AM EST IFG (impaired fasting glucose) LIPID PANEL WITH REFLEX TO DIRECT LDL Routine 09/11/2024 10:24 AM EST Primary hypertension HM COLONOSCOPY Routine 12/22/2021 from Last 3 Months or Most Recently Relevant to Health Maintenance Results * BI Mammogram Screening Tomosynthesis Bilateral (10/03/2024 10:30 AM EST) Anatomical Region Laterality Modality Breast Bilateral Mammography 10/03/2024 10:3 0 AM EST Narrative 10/12/2024 12:20 PM EST ? [facility] [place] ? [address] ?[place] [id number] ? Mammography Report ? Signed ? Patient: Venus Zhang ?MR#: MM ?? [id number] ? : 1955 ?Acct:[id number] ? Age/Sex: 69 / F ?ADM Date: 10/03/24 ? Loc: HO.MAMMO ? Attending Dr: Darline Finnegan MD ? Ordering Physician: Darline Finnegan MD ?Results: 1Ne ?? gative ? Date of Service: 10/03/24 ?Follow Up: 1 Year From Orig ?? inal Mammogram ? Procedure(s): MM tomosynthesis screening BI ?? Accession Number(s): [id number] ? cc: Darline Finnegan MD ? EXAMINATION: ?? MM SCREENING DIGITAL BREAST TOMOSYNTHESIS, BILATERAL ? CLINICAL INFORMATION: ? Screening. Asymptomatic. ? COMPARISON: ?? Mammography: Comparison is made with available priors ? TECHNIQUE: ?? Digital breast mammography with tomosynthesis is performed in both the ?? craniocaudal and mediolateral oblique views along with computer-aided ?? detection (CAD). ? FINDINGS: ?? There are scattered areas of fibroglandular density (ACR BI-RADS breast ?? composition Category b). ? There are no significant masses, abnormal calcifications, or other ?? abnormalities. ? MM/MM tomosynthesis screening BI ?? IMPRESSION: ?? No mammographic evidence of malignancy. ? ASSESSMENT: ? BI-RADS BI-RADS 1 - Negative ? RECOMMENDATION: ?? Routine annual mammography screening. ? 1 year F/U ? This examination should not preclude the clinical evaluation of a ?? suspicious palpable abnormality. ? This patient's information was entered into a reminder system with a ?? target due date for their next mammogram. ? Electronically signed by: ??[place]ie New DO ??10/12/2024 12:18 PM EST ?? RP ? Dictated By: ?[place]ie New DO ? Signed By: ?<Electronically signed by [place]ie New, DO in OV> ? 10/12/248 ? DD/ 1030 ? TD/TT: 10/03/24 1051 ? Supervisor Corduroy Cutting: ? Procedure Note Juvenal, Image - 10/12/2024 [facility] [address] [place], [place] [address] Mammography Report Signed Patient: Israel Zhang#: [id number] : 5Acct:[id number] Age/Sex: 69 / FADM Date: 10/03/24 Loc: HO.MAMMO Attending Dr: Darline Finnegan MD Ordering Physician: Darline Finnegan MDResults: 1Ne gative Date of Service: 10/03/24Follow Up: 1 Year From Orig ina Mammogram Procedure(s): MM tomosynthesis screening BI Accession Number(s): [id number] cc: Darline Finnegan MD EXAMINATION: MM SCREENING DIGITAL BREAST TOMOSYNTHESIS, BILATERAL CLINICAL INFORMATION: Screening. Asymptomatic. COMPARISON: Mammography: Comparison is made with available priors TECHNIQUE: Digital breast mammography with tomosynthesis is performed in both the craniocaudal and mediolateral oblique views along with computer-aided detection (CAD). FINDINGS: There are scattered areas of fibroglandular density (ACR BI-RADS breast composition Category b). There are no significant masses, abnormal calcifications, or other abnormalities. MM/MM tomosynthesis screening BI IMPRESSION: No mammographic evidence of malignancy. ASSESSMENT: BI-RADS BI-RADS 1 - Negative RECOMMENDATION: Routine annual mammography screening. 1 year F/U This examination should not preclude the clinical evaluation of a suspicious palpable abnormality. This patient's information was entered into a reminder system with a target due date for their next mammogram. Electronically signed by: [place]ie New DO 10/12/2024 12:18 PM EST Dictated By: [place]ie New DO Signed By: <Electronically signed by [place]ie New DO in OV> 10/12/24 1218 DD/ 1030 TD/TT: 10/03/24 1051 Supervisor Corduroy Cutting: Darline Finnegan MD IMG BI PROCEDURES Edited Result - Final * POCT HGB A1C (09/18/2024 9:58 AM EST) Hemoglobin A1C 5.8 4.0 - 6.0 % QC Media Lot # [id number] Lot# Expiration Date Blood 09/18/2024 9:58 AM EST Darline Finnegan MD POINT OF CARE TEST ENTER /EDIT ORDERABLES Final Result * (ABNORMAL) Lipid Panel with Reflex to Direct LDL (09/11/2024 10:24 AM EST) Triglycerides 88 <150 mg/dL [facility] Comment:Desirable Triglyceri de: less than 150 mg/dLBorderline High Triglyceride 150-199 mg/dLHigh Triglyceride: 200-499 mg/dLVery High Triglyceride: greater than or equal to 5OO mg/dL Cholesterol 193 <200 mg/dL [facility] Comment:Desirable Cholestero l: less than 200 mg/dLBorderline High Cholesterol: 200-239 mg/dLHigh Cholesterol: greater than 239 mg/dL LDL Cholesterol Calculated 125(H) <100 mg/dL [facility] Comment:Desirable LDL: less than 100 mg/dLNear Optimal/Above Optimal LDL: 110- 129 mg/dLBorderline High LDL: 130-159 mg/dLHigh LDL: 160-189 mg/dLVery High LDL: greater than or equal to 190 mg/dL HDL Cholesterol 51 >40 mg/dL [facility] Comment:Desirable HDL: great er than 40 mg/dL Note: This HDL assay may give artificially low results in patients with liver disease. Blood 09/11/2024 10:2 4 AM EST 09/11/2024 11:19 AM EST Darline Finnegan MD LAB BLOOD ORDERABLES Fin al Result [facility] [address] [place] [phone] * (ABNORMAL) Hm Colonoscopy (12/22/2021) Colonoscopy Abnormal( A) Normal Comment:Two small to medium sized polyps removed 12/22/2021 Darline Finnegan MD HEALTH MAINTENANCE Final Result from Last 3 Months or Most Recently Relevant to Health Maintenance Insurance [facility] [employer] TERM OPT[employer] (HMO D-SNP) DARÍO YANES [id number] Care Teams Award Machine Operator Relationship Specialty Start Date End Date Darline Finnegan MD [address] [place] [phone] PCP - General Family Medicine 07/19/19
--- OUTSIDE RECORDS SUMMARY | 2025-03-06 10:21 | XMS_ITS | Encounter Summary ---
Author Organization [employer] Address [address] [place] [address] Care Team Providers Care Fan Runner Name Role Phone Darline Finnegan MD Primary Care Provider + Reason for Visit * Reason Onset Date Comments Call Back Request 05/17/2024 Encounter Details Date Type Department Care Team ([facility] st Contact Info) Description 05/17/2024 Telephone [facility] [address] [place] [address] Darline Finnegan MD [address] [place] [address] Call Back Request Social History Tobacco Use Types Packs/Day Years Used Date Smoking Tobacco: Never Smokeless Tobacco: Never Alcohol Use Standard Drinks/Week Comments Never 0 (1 standard drink = 0.6 oz pur e alcohol) Depression Answer Date Recorded Patient Health Questionnaire-9 Score 0 02/08/2023 Housing Stability Answer Date Recorded What is your housing situation today? I have aram ambrose 09/01/[address] you li ve. Do you have problems with any of the following? None of the above 09/01/2023 Food Insecurity Answer Date Recorded Within the past 12 months, y ou worried that your food would run out before you got money to buy more: Never True 09/01/2023 Within the past 12 months,th e food you bought just didn't last and you didn't have enough money to get more: Never True Transportation Answer Date Recorded In the past 12 months, has l ack of transportation kept you from medical appts, meetings, work or from getting things needed for daily living? No 09/01/2023 Utilities Answer Date Recorded In the past 12 months, has t he electric, gas, oil or water company threatened to shut off services in your home? No 09/01/2023 Depression Answer Date Recorded Patient Health Questionnaire-2 Score 0 02/08/2023 Comments Unknown Sex and Gender Information Value Date Recorded Sex Assigned at Female 09/07/2022 10:35 AM EDT Legal Sex Female 10:35 AM EDT Gender Identity Female 09/07/2022 10:35 AM EDT Sexual Orientation Straight 09/07/2022 10 :35 AM EDT documented as of this encounter Miscellaneous Notes * Telephone Encounter - John Rice - 05/17/2024 10:46 AM EDT Tc from patient requesting a call back states there was suppose to be a referral put in place for abone density but is unsure telegraphic typewriter installer does not see any referrals put in documented in this encounter Plan of Treatment Upcoming Encounters Date Type Department Care Team (Late st Contact Info) Description 03/19/2025 9:45 AM EDT Office Visit [facility] [address] [place], [place] [phone] Darline Finnegan MD [address] [place] [address] documented as of this encounter Visit Diagnoses Not on filedocumented in this encounter Additional Health Concerns Assessment Noted Time PHQ-9 Depression Total Score: 0 02/09/20 23 10:30 AM EDT documented as of this encounter Care Teams Fan Runner Relationship Specialty Start Date End Date Darline Finnegan MD [address] [place], [place] [phone] PCP - General Family Medicine 07/19/19 documented as of this encounter
--- OUTSIDE RECORDS SUMMARY | 2025-03-06 10:21 | XMS_ITS | Encounter Summary ---
Author Organization [employer] [facility] Address [address] [place] [address] [address] [place] [address] Care Team Providers Care Meter Maker Name Role Phone Darline Finnegan MD Primary Care Provider + Encounter Details Date Type Department Care Team (Late st Contact Info) Description 12/08/2022 Orders Only [facility] [address] [place] [phone] Liliana Waggoner LPN Social History Tobacco Use Types Packs/Day Years Used Date Smoking Tobacco: Never Assessed Comments Unknown Sex and Gender Information Value Date Recorded Sex Assigned at Female 09/07/2022 10:35 AM EDT Legal Sex Female 10:35 AM EDT Gender Identity Female 09/07/2022 10:35 AM EDT Sexual Orientation Straight 09/07/2022 10 :35 AM EDT documented as of this encounter Plan of Treatment Upcoming Encounters Date Type Department Care Team (Late st Contact Info) Description 03/19/2025 9:45 AM EDT Office Visit [facility] [address] [place] [phone] Darline Finnegan MD [address] [place] [phone] documented as of this encounter Visit Diagnoses Not on filedocumented in this encounter Care Teams Meter Maker Relationship Specialty Start Date End Date Darline Finnegan MD [address] [place] [phone] PCP - General Family Medicine 07/19/19 documented as of this encounter
--- OUTSIDE RECORDS SUMMARY | 2025-03-06 10:21 | XMS_ITS | Encounter Summary ---
Author Organization [employer] [facility] [employer] Address [address] [place] [address] Care Team Providers Care Executive Pastry Chef Name Role Phone Darline Finnegan MD Primary Care Provider + Encounter Details Date Type Department Care Team (Late st Contact Info) Description 10/08/2023 Orders Only [facility] [address] [place] [address] Liliana Waggoner LPN Social History Tobacco Use Types Packs/Day Years Used Date Smoking Tobacco: Never Smokeless Tobacco: Never Alcohol Use Standard Drinks/Week Comments Never 0 (1 standard drink = 0.6 oz pur e alcohol) Depression Answer Date Recorded Patient Health Questionnaire-9 Score 0 02/08/2023 Housing Stability Answer Date Recorded What is your housing situation today? I have arammc ambrose 09/01/[address] you [...] Description 03/19/2025 9:45 AM EDT Office Visit [facility] [address] [place] [address] Darline Finnegan MD [address] [place] [address] documented as of this encounter Visit Diagnoses Not on filedocumented in this encounter Additional Health Concerns Assessment Noted Time PHQ-9 Depression Total Score: 0 02/09/20 23 10:30 AM EDT documented as of this encounter Care Teams Executive Pastry Chef Relationship Specialty Start Date End Date Darline Finnegan MD [address] [place] [address] PCP - General Family Medicine 07/19/19 documented as of this encounter
== END 2025-03-06 09:58 | disposition home or self-care (01) ==
LOC: HO.HGI 09:28
PROVIDERS: PCP Internal Medicine; Visit Provider Nurse Practitioner
DX: K21.9 Gastro-esophageal reflux disease without esophagitis (principal); K59.00 Constipation, unspecified
CPT/HCPCS: 99213

== ENCOUNTER → 2025-03-06 09:27 | Outpatient (BNVA) | payer OTHER, SELFPAY | PROVIDERS: PCP Internal Medicine; Visit Provider Nurse Practitioner | DX: K21.9 Gastro-esophageal reflux disease without esophagitis (principal); K59.00 Constipation, unspecified | CPT/HCPCS: 99212 ==

== ENCOUNTER 2025-06-08 15:09 | Outpatient (REF) | payer OTHER, SELFPAY ==
--- OUTSIDE RECORDS SUMMARY | 2025-06-08 15:12 | XMS_ITS | Patient Health Record ---
Author Organization [facility] liance Address [address] [place] [address] Care Team Providers Care Run Boat Operator Name Role Phone Darline Finnegan Primary Care Provider Unavailabl e Clinical, Operations Unavailable Unavailable Allergies No Known Allergies Results Component Value Reference Range Notes MAMMOGRAM, SCREENING Reviewed date:10/30/2024 09:41:45 AM Interpretation: Performing Lab: Notes/Report: Hemoglobin A1c Reviewed date:10/30/2024 09:47:55 AM Interpretation: Performing Lab: Notes/Report: Hemoglobin A1c 5.8 Lipid Panel And Chol/HDL Rat io Reviewed date:10/30/2024 09:52:29 AM Interpretation: Performing Lab: Notes/Report: Cholesterol, Total 193 Triglycerides 88 HDL Cholesterol 51 LDL Cholesterol Calc 125 Vitamin D, 1,25 Dihydroxy Reviewed date:10/30/2024 09:51:59 AM Interpretation: Performing Lab: Notes/Report: Vitamin D, 1,25 Dihydroxy 50.6 Comp. Metabolic Panel (14) Reviewed date:10/30/2024 09:51:33 AM Interpretation: Performing Lab: Notes/Report: Calcium, Serum 9.4 Glucose, Serum 91 BUN 20 Protein, Total, Serum 7.5 Albumin, Serum 4.0 Bilirubin, Total 0.3 Alkaline Phosphatase, S 78 AST (SGOT) 29 Potassium, Serum 4.6 Sodium, Serum 141 Chloride, Serum 109 Creatinine, Serum 0.85 ALT (SGPT) 16 Carbon Dioxide, Total 23 Reason For Referral No Information Medications Medication SIG (Take, Route, Frequency, Duration) Notes Start Date End Date Status Centrum Silver 50+Women - as directed Orally Active Ergocalciferol 32367 IU as directed Oral ly Once Weekly 1.25mg (50,000 units) Active Align Prebiotic-Probiotic 5-1.25 MG-GM as directed Orally Active Losartan Potassium 50 MG 1 tablet Orally Once a day Active Docusate Sodium 100 MG 1 capsule as need ed Orally Once a day Active Senna 8.6 MG 2 tablets at bedtime as needed Orally Once a day prn Active Pantoprazole Sodium 40 MG 1 tablet Orally Once a day Active Oyster Shell Calcium 500 + D Active Diclofenac Sodium 1 % as directed Externally Active [place] 3 1000 MG 2 capsule Orally Once a day OTC Active Naproxen 500 MG 1 tablet with food or milk Orally Twice a day OTC PRN Active Immunizations Vaccine Route Administration Date Status Comme nts COVID-19 COMIRNATY Vaccine, Fall 2022, SARS-CoV-2 virus strain Omicron XBB.1.5 Unknown 10/11/2023 Administered COVID-19 COMIRNATY Vaccine, Fall 2022, SARS-CoV-2 virus strain Omicron XBB.1.5 Unknown 10/23/2024 Administered COVID-19, mRNA, LNP-S, bival ent booster, PF, 30 mcg/0.3 mL Unknown 09/29/2022 Administered HEP B Vac (Xrdlhde-B-RIFEU), PFS, IM Unknown 06/24/2022 Administered HEP B Vac (Aweikdz-C-QHVMX), PFS, IM Unknown 07/28/2022 Administered HEP B Vac (Jhggogt-D-FUKTZ), PFS, IM Unknown 01/04/2023 Administered TwitChat (J&J) COVID-19 Vaccine IM Unknown 01/29/2021 Ad ministered Pfizer-BioNTech COVID-19 Vac cine 12+ IM Unknown 10/24/2021 Administered Pfizer-BioNTech COVID-19 Vac cine 12+ IM Unknown 05/20/2022 Administered Tdap Vac (Boostrix) PFS, IM Unknown 07/09/2022 Administ ered Zoster Vac (Shingrix) Recombinant Unknown 06/24/2022 Ad ministered Zoster Vac (Shingrix) Recombinant Unknown 08/26/2022 Ad ministered Problems Problem Type SNOMED Code ICD Code Onset Dates Problem Status W/U Status Risk Notes Problem Essential hypertension (95412222) Essential (primary) hypertension (I10) Active confirmed Problem Adult health examination (190896099) Encounter for general adult medical examination without abnormal findings (Z00.00) Active confirmed Problem Vitamin D deficiency (08190069) Vitamin D deficiency (E55.9) Active confirmed Problem Hyperlipidemia (61372480) Hyperlipidemia (E78.5) Active confirmed Problem Osteoarthritis of multiple joints (168482837) Osteoarthritis of multiple joints, unspecified osteoarthritis type (M15.9) Active confirmed Problem Chronic constipation (680053205) Chronic constipation (K59.09) Active confirmed Problem Type 2 diabetes mellitus with peripheral angiopathy (747903652) Type 2 diabetes mellitus with diabetic peripheral angiopathy without gangrene, without long-term current use of insulin (E11.51) Active confirmed Problem Gastroesophageal reflux disease (890737827) Gastroesophageal reflux disease, unspecified whether esophagitis present (K21.9) Active confirmed Problem Prediabetes (440874334) Prediabetes (R73.09) Inactive confirmed Problem Primary osteoarthritis (171397510) Primary osteoarthritis involving multiple joints (M89.49) Inactive confirmed Vital Signs Height-cm 154.9 cm 10/30/2024 Weight-kg 64.41 kg 10/30/2024 Height 60.98 in 10/30/2024 Weight 142 lbs 10/30/2024 BMI 26.85 kg/m2 10/30/2024 Encounters Encounter Location Date Provider Diagnosis [facility] [address] [place] [address] 10/30/2024 Operations Clinical Essential (primary) hypertension I10 ; Hyperlipidemia E78.5 ; Vitamin D deficiency E55.9 ; Encounter for general adult medical examination without abnormal findings Z00.00 ; Gastroesophageal reflux disease, unspecified whether esophagitis present K21.9 ; Type 2 diabetes mellitus with diabetic peripheral angiopathy without gangrene, without long-term current use of insulin E11.51 ; Chronic constipation K59.09 and Osteoarthritis of multiple joints, unspecified osteoarthritis type M15.9 [facility] [address] [place] [address] 10/30/2024 Operations Clinical Assessments Encounter Date Diagnosis (ICD Code) Assessment Notes Treatment Notes Treatment Clinical Notes Section Notes 10/30/2024 Essential (primary) hypertension (ICD-10 - I10) 10/30/2024 Hyperlipidemia (ICD-10 - E78.5) 10/30/2024 Vitamin D deficiency (ICD-10 - E55.9) 10/30/2024 Encounter for general adult medical examination without abnormal findings (ICD-10 - Z00.00) 10/30/2024 Gastroesophageal reflux disease, unspecified whether esophagitis present (ICD-10 - K21.9) 10/30/2024 Type 2 diabetes mellitus with diabetic peripheral angiopathy without gangrene, without long-term current use of insulin (ICD-10 - E11.51) 10/30/2024 Chronic constipation (ICD-10 - K59.09) 10/30/2024 Osteoarthritis of multiple joints, unspecified osteoarthritis type (ICD-10 - M15.9) Plan Of Treatment No Information Insurance Providers Payer Name Payer Address Payer Phone Subscriber Number Group Number Insured Name Patient Relationship to Insured Coverage Start Date Coverage End Date [facility] [employer] ([id number]) [id number] [facility] [address] [place] [address] [id number] Venus Zhang Self - patient is the insured 1 9 Medical (General) History Medical History History ICD Code HTN HLD OA GERD Surgical History Surgery Date(Month/Year) hysterectomy Cholecystectomy Hospitalization History Reason Date(Month/Year) No recent hospitalizations
--- OUTSIDE RECORDS SUMMARY | 2025-06-08 15:12 | XMS_ITS | Encounter Summary ---
Author Organization [employer] Address [address] [facility] [address] [place] [address] Care Team Providers Care Shop Helper Name Role Phone Darline Finnegan MD Primary Care Provider + Encounter Details Date Type Department Care Team (Latest Contact Info) Description 06/08/2025 Travel Social History Tobacco Use Types Packs/Day Years Used Date Smoking Tobacco: Never Passive Smoke Exposure: Never Smokeless Tobacco: Never Alcohol Use Standard Drinks/Week Comments Never 0 (1 standard drink = 0.6 oz pur e alcohol) Depression Answer Date Recorded Patient Health Questionnaire-9 Score 0 05/31/2025 Patient Health Questionnaire-9 Score 0 05/31/2025 Last PHQ-9: Questionnaire Data Not on file 0 05/31/2025 Housing Stability Answer Date Recorded What is your housing situation today? I have [facility] 06/06/[address] you [...] Date Recorded Patient Health Questionnaire-2 Score 0 05/31/2025 Internet Access Answer Date Recorded Internet Access [...] Care Team (Late st Contact Info) Description 08/03/2025 11:15 AM EDT Office Visit [facility] [address] [place] [address] Darline Finnegan MD [address] [place] [id number] documented as of this encounter Visit Diagnoses Not on filedocumented in this encounter Additional Health Concerns Assessment Noted Time PHQ-9 Depression Total Score: 0 05/31/20 25 2:33 PM EDT documented as of this encounter Care Teams Shop Helper Relationship Specialty Start Date End Date Darline Finnegan MD [address] [place] [address] PCP - General Family Medicine 07/19/19 documented as of this encounter
[2025-06-12 01:38] LABS: Lyme Abs Screen <0.90 index
== END 2025-06-08 15:10 | disposition home or self-care (01) ==
LOC: HO.HHCL 15:09
PROVIDERS: PCP Internal Medicine; Visit Provider Nurse Practitioner Primary Care
DX: Z01.84 Encounter for antibody response examination (principal); R21 Rash and other nonspecific skin eruption
CPT/HCPCS: 36415; 86617; 86618

== ENCOUNTER 2025-09-04 09:01 | Outpatient (AMB) | payer OTHER, SELFPAY ==
[2025-09-04 09:10] VITALS: BP 128/69; PULSE 63; BMI 25.5
--- NOTE | 2025-09-04 09:10 | MHC.OFFVIS ---
Vital Signs 09/04/25 09:10 Height 5 ft 1 in Weight 135 lb BMI 25.5 BP 128/69 Blood Pressure Location Lt brachial Position Sitting Pulse 63 Intake Visit Reasons: 6 MO F/U Gerd, CIC Intake Note: Venus returns to in office follow up of GERD and CIC. CC: Patient reports doing well and denies having any new GI symptoms or concerns. Street Supervisor Required: Yes Street Supervisor Language: Albanian Accompanied by: Self / Same As Patient Allergies No Known Allergies (No Known Allergies*) Allergy (Verified 09/04/25 09:19) HPI HPI 6 MO F/U Gerd, CIC: Details: Assessment & Plan (1) GERD (gastroesophageal reflux disease): Code(s): K21.9 - Gastro-esophageal reflux disease without esophagitis Category: Medical (2) Constipation: Code(s): K59.00 - Constipation, unspecified Category: Medical Plan KAZAKH #Louise Omer She is doing generally well, but she had some discomfort a few days ago when she ate something with onions. We discuss that this is a known trigger food for GERD. She continues on her protonix, senna and colace. She requests education on reasons for EGD and hemorrhoids. She is aware that she will be due for repeat colonoscopy in 2026. ROV 6 mos. Medications: Refilled pantoprazole 40 mg PO DAILY 30 tabs 6RF K21.9 - Gastro-esophageal reflux disease without esophagitis sennosides (senna) 17.2 mg (2 x 8.6 mg) PO BEDTIME 60 tabs 6RF K59.00 - Constipation, unspecified docusate sodium 100 mg PO DAILY 30 caps 6RF TODAY'S VISIT Albanian #Bhavna Omer [facility] Medical History (Updated 09/04/25 @ 09:36 by BRI Clark) Colon cancer screening Knee pain Impaired fasting glucose Insomnia GERD (gastroesophageal reflux disease) Elevated cholesterol HTN (hypertension) Surgical History Hx of varicose vein ligation H/O colonoscopy History of hysterectomy History of cholecystectomy Social History Patient Tobacco Use Status: Never used Tobacco Second Hand Smoke Exposure: No Review of Systems Const Denies fatigue, Denies fever(s), Denies night sweats, Denies poor appetite and Denies weight loss Eyes Details: glasses Reports requires corrective lenses ENT Reports Normal hearing present, Denies dental pain, Denies dysphagia, Denies hearing loss, Denies mouth pain, Denies odynophagia, Denies throat swelling, Denies tongue swelling and Reports other (Dentition adequate) Card Reports no additional complaints Resp Reports no additional complaints GI Details: Denies abdominal pain, Denies melena, Denies bloating, Denies hematochezia, Reports constipation, Denies GI cramping, Denies dysphagia, Denies excessive flatus, Denies early satiety, Reports heartburn, Denies diarrhea, Denies nausea, Denies odynophagia, Denies vomiting and Denies hematemesis Skin/Breast Denies pruritus, Denies lesions, Denies rash and Denies jaundice Neuro Reports Normal hearing present and Denies Abnormal speech present Endo Denies fatigue Aller/Immun Denies throat swelling and Denies tongue swelling Physical Exam Vital Signs: Last Vital Signs Pulse 63 09/04/25 09:10 BP 128/69 09/04/25 09:10 BMI result Body Mass Index 25.5 Const General: cooperative, no acute distress, well developed and well groomed Nutritional Appearance: average body habitus and well nourished Orientation/consciousness: oriented to person, oriented to place and oriented to time Limitations: language barrier HEENT Head: Yes normocephalic and Yes atraumatic Eyes General: appearance normal, both eyes and all related structures Pupils: Equal, round and reactive pupils present Neck Neck: Yes normal visual inspection and Yes no lymphadenopathy Thyroid: Thyroid normal Resp Effort & Inspection: normal respiratory effort and able to speak in complete sentences Auscultation: clear to auscultation bilaterally Cardio Rate: regular rate Rhythm: regular rhythm Heart sounds: Normal, physiologic split S2 sound present Peripheral pulses: radial pulses present and posterior tibial pulses present GI Inspection: No distended and No Abdominal panniculus present Palpation (GI): Soft to palpation, nontender, no guarding, not rigid and No hepatosplenomegaly present Percussion: Yes normal to percussion Auscultation: normal bowel sounds Rectal Exam - Female: deferred Skin General skin exam: no rashes or lesions noted, turgor normal, skin not dry, no jaundice, No spider nevi and no striae Rashes: no rashes Nails: normal Neuro General: oriented to person, oriented to place and oriented to time Cranial nerves: Yes Equal, round and reactive pupils present and Yes Normal hearing present Speech: No Abnormal speech present Extrem General: Yes normal to inspection, No clubbing, No cyanosis and No edema Psych Appearance: grossly normal and well kempt Mental Status: mental status grossly normal Speech and movement: Normal speech and movement present Affect: normal affect Attitude: cooperative Thought process: Normal thought process present and not confabulating Thought content: Normal thought content present Insight: Fair insight present (Psych) Judgement: Fair judgement present (Psych) Assessment & Plan Assessment & Plan (1) GERD (gastroesophageal reflux disease): Code(s): K21.9 - Gastro-esophageal reflux disease without esophagitis Category: Medical (2) Constipation: Code(s): K59.00 - Constipation, unspecified Category: Medical Plan Albanian #Bhavna Live She continues on her protonix, senna and colace. She is doing very well and needs no adjustments to her GI regimen. Return office visit in 6 months. She will be due for a repeat screening colonoscopy in 2026. She asks about an EGD and I explained that those are not done for routine screening and she denies having any concerning symptoms since she has been quite stable on her medications. Medications: Refilled pantoprazole 40 mg PO DAILY 30 tabs 6RF K21.9 - Gastro-esophageal reflux disease without esophagitis docusate sodium 100 mg PO DAILY 30 caps 6RF sennosides (senna) 17.2 mg (2 x 8.6 mg) PO BEDTIME 60 tabs 6RF K59.00 - Constipation, unspecified Coding Level of Care Code Est Pt Level 3 (68263) Diagnoses GERD (gastroesophageal reflux disease) K21.9 Constipation K59.00
--- OUTSIDE RECORDS SUMMARY | 2025-09-04 10:00 | XMS_ITS | Encounter Summary ---
Author Organization [employer] Address [address] [facility] [address] [place] [address] Care Team Providers Care Human Resources Recruiter Name Role Phone Darline Finnegan MD Primary Care Provider + Reason for Visit * Reason Onset Date Comments Call Back Request 05/17/2024 Encounter Details Date Type Department Care Team ([facility] st Contact Info) Description 05/17/2024 Telephone [facility] [address] [place] [address] Darline Finnegan MD [address] [place] [address] Call Back Request Social History Tobacco Use [...] place for abone density but is unsure parts data writer does not see any referrals put in documented in this encounter Plan of Treatment Not on file documented as of this encounter Visit Diagnoses Not on filedocumented in this encounter Additional Health Concerns Assessment Noted Time PHQ-9 Depression Total Score: 0 02/09/20 23 10:30 AM EDT documented as of this encounter Care Teams Human Resources Recruiter Relationship Specialty Start Date End Date Darline Finnegan MD [address] [place] [address] PCP - General Family Medicine 07/19/19 documented as of this encounter
--- OUTSIDE RECORDS SUMMARY | 2025-09-04 10:00 | XMS_ITS | Encounter Summary ---
Author Organization [employer] Address [address] [facility] [address] [place] [address] Care Team Providers Care Residential Treatment Specialist Name Role Phone Darline Finnegan MD Primary Care Provider + Encounter Details Date Type Department Care Team (Late st Contact Info) Description 10/08/2023 Orders Only [facility] [address] [place], [place] [id number] Liliana Waggoner LPN Social History Tobacco Use [...] as of this encounter Plan of Treatment Not on file documented as of this encounter Visit Diagnoses Not on filedocumented in this encounter Additional Health Concerns Assessment Noted Time PHQ-9 Depression Total Score: 0 02/09/20 23 10:30 AM EDT documented as of this encounter Care Teams Residential Treatment Specialist Relationship Specialty Start Date End Date Darline Finnegan MD [address] [place] [id number] PCP - General Family Medicine 07/19/19 documented as of this encounter
--- OUTSIDE RECORDS SUMMARY | 2025-09-04 10:00 | XMS_ITS | Clinical Summary ---
Author Organization [employer] Address [address] [place] [address] [address] [place] [address] Care Team Providers Care Marketing Communication Manager Name Role Phone Darline Finnegan MD Primary Care Provider + Allergies No known active allergies Medications Blood Glucose Monitoring Suppl (ONE TOUCH ULTRA 2) w/Device kitIndications:I FG (impaired fasting glucose) Use to test blood sugar two times daily 1 kit 3 Active ciclopirox (Penlac) 8 % solutionIndicati ons:Onychomycosi s of great toe APPLY TOPICALLY TO THE AFFECTED AREA(S) EVERY DAY AT BEDTIME DIRECTED 6.6 mL 3 5 Active glucose blood (OneTouch Ultra) test stripIndications :IFG (impaired fasting glucose) USE TO TEST BLOOD SUGAR TWICE DAILY 100 each 11 5 Active losartan (Cozaar) 50 MG tablet TAKE 1 TABLET BY MOUTH EVERY DAY 90 tablet 1 5 Active Lancets (OneTouch Delica Plus Melcgl35A) misc USE DIRECTED TO TEST BLOOD SUGAR TWICE DAILYUSE DIRECTED TO TEST BLOOD SUGAR TWICE DAILY 100 each 11 5 Active melatonin 5 MG tablet TAKE 2 TABLETS (10mg) BY MOUTH ONCE DAILY AT BEDTIME 60 tablet 5 Active ketoconazole (NIZOral) 2 % cream Apply topically Once per day. 15 g 5 Active Diclofenac Sodium 1 % gelIndications:L ow back pain, unspecified back pain laterality, unspecified chronicity, unspecified whether sciatica present APPLY 2 GRAMS TOPICALLY TO AFFECTED AREA(S) FOUR TIMES DAILY 100 g 3 5 Active Calcium Carb-Cholecalcif marek (Calcium 500 + D) 500-3.125 MG-MCG tablet Take 1 tablet by mouth Once per day. 30 tablet 11 5 Active acetaminophen (Tylenol Extra Strength) 500 MG tablet Take 1 tablet (500 mg) by mouth every 6 (six) hours if needed for mild pain. 120 tablet 5 09/02/20 25 Active Problems Problem Noted Date Diagnosed Date Tinea corporis 08/03/2025 Overweight 03/19/2025 Assessment & Plan (03/19/2025 10:11 AM EDT): Discussed re weight reduction options including exercise, life style modifications, diet. Recommended to decrease soda and sugary beverage consumption, increase protein intake with meals (at least 1 portion of protein with each meal) to assist with satiety, increase dietary fiber Recommended at least 150 min/week of moderate intensity exercise. 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 Compliant w/meds Continue losartan same dose Counseled re low salt diet/increase moderate physical activity. Check home BP BIW and prn CP/MORRIS/LO Non smoking patient. 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 Advised to check fingersticks once or twice per week maximum if anything Watch for signs of polydipsia polyuria I have discussed with patient regarding increasing physicial activity and decrease calorie intake I'll check FBS with next set of labs. To check RBS at next visit. FU with me in 4-6m Assessment & Plan (09/18/2024 8:52 PM EST): [...] History of hysterectomy for benign disease 01/07 Backache 01/07/2023 Adjustment insomnia 01/07/2023 Assessment & Plan (03/19/2025 10:08 AM EDT): Most likely related to having to deal with her mother's with a history diagnosis. Advised to check fingerstick and BP at home and call back if they are abnormal. We discussed regarding sleep hygiene including taking a warm shower, drinking warm teas and avoiding watching news Take melatonin 5 to 10 mg 1 or 2 hours prior to regular sleep time and reconsult as needed, may consider trazodone. Resolved Problems Problem Noted Date Diagnosed Date Resolved Date Candidal intertrigo 01/07/2023 03/19/20 Encounters Date Type Department Care Team Description 08/03/2025 11:15 AM EDT Office Visit [address] [address] Darline Finnegan MD Adjustment insomnia (Primary Dx); Tinea corporis; Chronic pain of right knee; Low back pain, unspecified back pain laterality, unspecified chronicity, unspecified whether sciatica present; IFG (impaired fasting glucose) 08/03/2025 Travel 08/02/[address] [address] Darline Finnegan MD chart prep 07/26/2025 Patient Outreach [address] [address] Darline Finnegan MD Pre-visit Planning (SDOH screening completed on 03/12/2025) 07/25/[address] [address] Darline Finnegan MD 06/19/[address] [address] Darline Finnegan MD Telephone Call 06/12/[address] [address] Darline Finnegan MD follow up rash 06/12/2025 Results Follow-Up [address] [place] [address] Marsha Courtney ANP Lyme Disease Ab with Reflex to Blot (IgG, IgM) 06/11/2025 Refill [facility] [address] [place], [place] [id number] Darline Finnegan MD Low back pain, unspecified back pain laterality, unspecified chronicity, unspecified whether sciatica present 06/08/2025 2:20 PM EDT Office Visit [facility] [address] [place] [address] Marsha Courtney ANP Rash (Primary Dx) 06/08/2025 Travel from Last 3 Months Immunizations Immunization Administration Dates Next Due Hep B, adult 01/04/2023,07/28/2022,06/24/2022 Pfizer Covid-19 Vaccine 12+ 10/23/2024, Tdap 07/09/2022 Zoster, Recombinant 08/26/2022,06/24/2022 Social History Tobacco Use Types Packs/Day Years Used Date Smoking Tobacco: Never Passive Smoke Exposure: Never Smokeless Tobacco: Never Tobacco Cessation:Counseling Given: Not Answered Alcohol Use Standard Drinks/Week Comments Never 0 (1 standard drink = 0.6 oz pur e alcohol) Depression Answer Date Recorded Patient Health Questionnaire-9 Score 0 08/03/2025 Patient Health Questionnaire-9 Score 0 08/03/2025 Last PHQ-9: Questionnaire Data Not on file 0 08/03/2025 Housing Stability Answer Date Recorded What is [...] Date Recorded Patient Health Questionnaire-2 Score 0 08/03/2025 Internet Access Answer Date Recorded Internet Access Q1 Yes 07/10/2024 Internet Access Q2 Not on file 07/10/2024 Comments No Sex and Gender Information Value Date Recorded Sex Assigned at Female 09/07/2022 10:35 AM EDT Legal Sex Female 10:35 AM EDT Gender Identity Female 09/07/2022 10:35 AM EDT Sexual Orientation Straight 09/07/2022 10 :35 AM EDT Last Filed Vital Signs Vital Sign Reading Time Taken Comments Blood Pressure 100/60 08/03/2025 11:47 AM EDT Pulse 70 08/03/2025 11:47 AM EDT Temperature 36.1 C (97 F) 08/03/2025 11:47 AM EDT Respiratory Rate 19 08/03/2025 11:47 AM EDT Oxygen Saturation 98% 08/03/2025 11:47 AM EDT Inhaled Oxygen Concentration - - Weight 61.5 kg (135 lb 8 oz) 08/03/2025 11:47 AM EDT Height 154.9 cm (5' 1 ) 08/03/2025 11:47 AM EDT Body Mass Index 25.6 08/03/2025 11:47 AM EDT Plan of Treatment Health Maintenance Due Date Last Done Comments CT Colonography 1955 FIT DNA/Cologuard 1955 FIT 1955 FOBT 1955 Sigmoidoscopy 1955 Hepatitis C Screening 1973 Pneumococcal Vaccine: 50+ Years (1 of 1 - PCV) 2005 COVID-19 Vaccine ( season) 2025 10/23/2024, 10/11/2023, 09/29/2022, Additional history exists Influenza Vaccine (#1) 2025 Mammogram 10/03/2025 10/03/2024, 09/09, 09/25/2022, Additional history exists SDOH Screening 03/12/2026 03/12/2025 Alcohol/Substance Use Screening 05/31/2026 05/31/2025 Depression Screening 08/03/2026 08/03/2025, 08/03/20 25 Diabetes: Hemoglobin A1C 08/03/2026 025, 09/18/2024, 03/10/2024, Additional history exists Tobacco Screening 08/03/2026 08/03/2025 Colonoscopy 12/22/2026 12/22/2021 Colorectal Cancer Screening 12/22/2026 Lipid Panel 09/11/2029 09/11/2024, 01/2023, 05/20/2022, Additional history exists RSV Patients and Patients Aged 60 years or older (1 - 1-dose 75+ series) 2030 DTaP/Tdap/Td Vaccines (2 - Td or Tdap) 07/09/2032 07/09/2022 Zoster Vaccines Completed 08/26/2022, 06/24/2022 Hepatitis B Vaccines Completed 01/04/2023, 07/28/2022, 06/24/2022 HIB Vaccines Aged Out No longer eligi [...] patient's age to complete this topic Meningococcal B Vaccine Aged Out No l onger eligible based on patient's age to complete [...] Procedure Name Priority Date/Time Associated Diagnosis Comments POCT GLYCATED HEMOGLOBIN, TOTAL Routine 08/03/2025 12:01 PM EDT IFG (impaired fasting glucose) POCT GLUCOSE Routine 08/03/2025 12:01 PM EDT IFG (impaired fasting glucose) LYME DISEASE AB W/REFL TO BLOT (IGG, IGM) Routine 06/08/2025 3:13 PM EDT Rash BI MAMMOGRAM SCREENING TOMOSYNTHESIS BILATERAL Routine 10/03/2024 10:30 AM EST LIPID PANEL WITH REFLEX TO DIRECT LDL Routine 09/11/2024 10:24 AM EST Primary hypertension HM COLONOSCOPY Routine 12/22/2021 from Last 3 Months or Most Recently Relevant to Health Maintenance Results * POCT Hgb A1c (08/03/2025 12:01 PM EDT) Hemoglobin A1C 5.7 4.0 - 5.7 % QC Media Lot # [id number] Lot# Expiration Date [id number] Blood 08/03/2025 12:0 1 PM EDT Darline Finnegan MD POINT OF CARE TEST ENTER /EDIT ORDERABLES Final Result * POCT Glucose (08/03/2025 12:01 PM EDT) Glucose Blood, POC 109 60 - 200 mg/dL QC Media Lot # [id number] Lot# Expiration Date ,[id number] Blood Capillary blood specimen / Unknown 08/03/2025 12:01 PM EDT Darline Finnegan MD POINT OF CARE TEST ENTER /EDIT ORDERABLES Final Result * Lyme Disease Ab with Reflex to Blot (IgG, IgM) (06/08/2025 3:13 PM EDT) Lyme Antibody Screen <0.90 index [facility] Comment:Index Interpretation ----- < 0.90 Negative 0.90-1.09 Equivocal > 1.09 PositiveAs recommended by the Food and Drug Administration(FDA), all samples with positive or equivocalresults in a Borrelia burgdorferi antibody screenwill be tested using a blot method. Positive orequivocal screening test results should not beinterpreted as truly positive until verified as suchusing a supplemental assay (e.g., B. burgdorferi blot).The screening test and/or blot for B. burgdorferiantibodies may be falsely negative in early stagesof Lyme disease, including the period when erythemamigrans is apparent.THIS TEST WAS PERFORMED AT:[facility] [place] [phone] COBOS MD Lyme Blot TNP [facility] 06/08/2025 3:13 PM EDT 06/08/2025 4:31 PM EDT Formerly [facility] LAB BLOOD ORDERABLES Final Resul t [facility] [address] [place] [phone] * BI Mammogram Screening Tomosynthesis Bilateral (10/03/2024 10:30 AM EST) Anatomical Region Laterality Modality Breast Bilateral Mammography 10/03/2024 10:3 0 AM EST Narrative 10/12/2024 12:20 PM EST [address] [place] [address] Mammography Report Signed Patient: Venus Zhang MR#: [id number] : 1955 Acct:[id number] Age/Sex: 69 / F ADM Date: 10/03/24 Loc: HO.MAMMO Attending Dr: Darline Finnegan MD Ordering Physician: Darline Finnegan MD Results: 1Ne gative Date of Service: 10/03/24 Follow Up: 1 Year From [facility] Mammogram Procedure(s): MM tomosynthesis screening BI Accession Number(s): [id number] cc: Darline Finnegan MD EXAMINATION: MM SCREENING [...] by: Stephenie New DO 10/12/2024 12:18 PM [facility] Dictated By: Stephenie New DO Signed By: <Electronically signed by Stephenie New DO in OV> 10/12/24 1218 DD/ 1030 TD/TT: 10/03/24 1051 Home Care Administrator: Procedure Note Donotuseinterpreter, Image - 10/12/[facility] [address] [place] [address] Mammography Report Signed Patient: Israel Zhang#: [id number] : 5Acct:[id number] Age/Sex: 69 / FADM Date: 10/03/24 Loc: HO.MAMMO Attending Dr: Darline Finnegan MD Ordering Physician: Darline Finnegan MDResults: 1Ne gative Date of Service: 10/03/24Follow Up: 1 Year From [facility] Mammogram Procedure(s): MM tomosynthesis screening BI Accession Number(s): [id number] cc: Darline Finnegan MD EXAMINATION: MM SCREENING [...] 10/12/24 1218 DD/ 1030 TD/TT: 10/03/24 1051 Home Care Administrator: us Darline Finnegan MD IMG BI PROCEDURES Edited Result - Final * (ABNORMAL) Lipid Panel with Reflex to Direct LDL (09/11/2024 10:24 AM EST) Triglycerides 88 <150 mg/dL [facility] Comment:Desirable Triglyceri de: less than 150 mg/dLBorderline High Triglyceride 150-199 mg/dLHigh Triglyceride: 200-499 mg/dLVery High Triglyceride: greater than or equal to 5OO mg/dL Cholesterol 193 <200 mg/dL [facility] Comment:Desirable Cholestero l: less than 200 mg/dLBorderline High Cholesterol: 200-239 mg/dLHigh Cholesterol: greater than 239 mg/dL LDL Cholesterol Calculated 125(H) <100 mg/dL [facility] Comment:Desirable LDL: less than 100 mg/dLNear Optimal/Above Optimal LDL: 110- 129 mg/dLBorderline High LDL: 130-159 mg/dLHigh LDL: 160-189 mg/dLVery High LDL: greater than or equal to 190 mg/dL HDL Cholesterol 51 >40 mg/dL [facility] Comment:Desirable HDL: great er than 40 mg/dL Note: This HDL assay may give artificially low results in patients with liver disease. Blood 09/11/2024 10:2 4 AM EST 09/11/2024 11:19 AM EST us Darline Finnegan MD LAB BLOOD ORDERABLES Fin al Result [facility] [address] [place] [phone] * (ABNORMAL) Colonoscopy (12/22/2021) Colonoscopy Abnormal( A) Normal Comment:Two small to medium sized polyps removed 12/22/2021 us Darline Finnegan MD HEALTH MAINTENANCE Final Result from Last 3 Months or Most Recently Relevant to Health Maintenance [facility] DARÍO YANES [id number] Care Teams Marketing Communication Manager Relationship Specialty Start Date End Date Darline Finnegan MD [address] [place] [phone] PCP - General Family Medicine 07/19/19
--- OUTSIDE RECORDS SUMMARY | 2025-09-04 10:00 | XMS_ITS | Encounter Summary ---
Author Organization [employer] Address [address] [place] [address] [address] [place] [address] Care Team Providers Care Hot Mill Observer Name Role Phone Darline Finnegan MD Primary Care Provider + Encounter Details Date Type Department Care Team (Late st Contact Info) Description 12/08/2022 Orders Only [facility] [address] [place] [address] Liliana Waggoner LPN Social History Tobacco Use [...] on filedocumented in this encounter Care Teams Hot Mill Observer Relationship Specialty Start Date End Date Darline Finnegan MD [address] [place] [address] PCP - General Family Medicine 07/19/19 documented as of this encounter
--- OUTSIDE RECORDS SUMMARY | 2025-09-04 10:00 | XMS_ITS | Patient Health Record ---
Author Organization [facility] Address [address] [place] [address] Care Team Providers Care Raw Stock Drier Tender Name Role Phone Kain, Ana Primary Care Provider Symone Chu Unavailable [phone] Clinical, Operations Unavailable Unavailable Allergies No Known [...] Duration) Notes Start Date End Date Status Pantoprazole Sodium 40 MG 1 tablet Orall y Once a day Active Losartan Potassium 50 MG 1 tablet Orally Once a day Active Refresh 1.4-0.6 % 1 drop into affected eye as needed Ophthalmic 24 time(s) a day OTC Active Acetaminophen 500 MG 1 capsule as needed Orally every 6 hrs As needed Active Ruso 3 1000 MG 2 capsule Orally Onc e a day OTC Active Align Prebiotic-Probiotic 5-1.25 MG-GM as directed Orally OTC Active Centrum Silver 50+Women - as directed Orally OTC Active Clotrimazole 1 % 1 application Head Lineman ally Twice a day Active Diclofenac Sodium 1 % as directed Externally Active Senna 8.6 MG 2 tablets at bedtime as needed Orally Once a day As needed Active Melatonin 5 MG 2 tabs in the evening Orally Once a day As needed Active Docusate Sodium 100 MG 1 capsule as needed Orally Once a day As needed Active Oyster Shell Calcium 500 + D Active Immunizations Vaccine Route Administration Date Status Comme nts COVID-19 COMIRNATY Vaccine, Fall 2022, SARS-CoV-2 virus strain Omicron XBB.1.5 Unknown 10/11/2023 Administered COVID-19 COMIRNATY Vaccine, Fall 2022, SARS-CoV-2 virus strain Omicron XBB.1.5 Unknown 10/23/2024 Administered COVID-19, mRNA, LNP-S, bival ent booster, PF, 30 mcg/0.3 mL Unknown 09/29/2022 Administered HEP B Vac ([id number]), PFS, IM Unknown 06/24/2022 Administered HEP B Vac ([id number]), PFS, IM Unknown 07/28/2022 Administered HEP B Vac ([id number]), PFS, IM Unknown 01/04/2023 Administered EpicPledge (J&J) COVID-19 Vaccine IM Unknown 01/29/2021 Ad [...] W/U Status Risk Notes Problem Essential hypertension (35068717) Essential (primary) hypertension (I10) Active confirmed Problem Tear film insufficiency (06681661) Dry eye syndrome of bilateral lacrimal glands (H04.123) Active confirmed Problem Eruption of skin (868926181) Rash and other nonspecific skin eruption (R21) Active confirmed Problem Adult health examination (468588061) Encounter for general adult medical examination without abnormal findings (Z00.00) Active confirmed Problem Vitamin D deficiency (91732468) Vitamin D deficiency (E55.9) Active confirmed Problem Hyperlipidemia (41825360) Hyperlipidemia (E78.5) Active confirmed Problem Prediabetes (735661024) Prediabetes (R73.09) Inactive confirmed Problem Bilateral age-related cataract (13789647487351161 ) Combined forms of age-related cataract, bilateral (H25.813) Active confirmed Problem Osteoarthritis of multiple joints (798493613) Osteoarthritis of multiple joints, unspecified osteoarthritis type (M15.9) Active confirmed Problem Chronic constipation (677962873) Chronic constipation (K59.09) Active confirmed Problem Type 2 diabetes mellitus with peripheral angiopathy (411862631) Type 2 diabetes mellitus with diabetic peripheral angiopathy without gangrene, without long-term current use of insulin (E11.51) Active confirmed Problem Primary osteoarthritis (952458425) Primary osteoarthritis involving multiple joints (M89.49) Inactive confirmed Problem Gastroesophageal reflux disease (360582166) Gastroesophageal reflux disease, unspecified whether esophagitis present (K21.9) Active confirmed Vital Signs Heart Rate 68 /min 08/13/2025 Temperature 97.6 degrees Fahrenheit 08/13/2025 Respiratory Rate 18 /min 08/13/2025 Oximetry 98 % 08/13/2025 Blood pressure diastolic 68 mm Hg 08/13/2025 Height-cm 154.9 cm 08/13/2025 Weight-kg 64.41 kg 10/30/2024 Height 60.98 in 08/13/2025 Blood pressure systolic 112 mm Hg 08/13/2025 Weight 142 lbs 10/30/2024 BMI 26.85 kg/m2 10/30/2024 Encounters Encounter Location Date Provider Diagnosis [facility] [address] [place] [address] 10/30/2024 Operations Clinical Essential (primary) hypertension I10 [...] of multiple joints, unspecified osteoarthritis type M15.[address] [address] 08/13/2025 Symone Jose Ramon Essential (primary) hypertension I10 ; Hyperlipidemia E78.5 ; Vitamin D deficiency E55.9 ; Encounter for general adult medical examination without abnormal findings Z00.00 ; Gastroesophageal reflux disease, unspecified whether esophagitis present K21.9 ; Type 2 diabetes mellitus with diabetic peripheral angiopathy without gangrene, without long-term current use of insulin E11.51 ; Chronic constipation K59.09 ; Osteoarthritis of multiple joints, unspecified osteoarthritis type M15.9 ; Combined forms of age-related cataract, bilateral H25.813 ; Dry eye syndrome of bilateral lacrimal glands H04.123 and Rash and other nonspecific skin eruption R21 [address] [address] 10/30/2024 Operations Clinical Assessments Encounter Date Diagnosis (ICD Code) Assessment Notes Treatment Notes Treatment Clinical Notes Section Notes 10/30/2024 Essential (primary) hypertension (ICD-10 - I10) 08/13/2025 Essential (primary) hypertension (ICD-10 - I10) 08/13/2025 Hyperlipidemia (ICD-10 - E78.5) 10/30/2024 Hyperlipidemia (ICD-10 - E78.5) 10/30/2024 Vitamin D deficiency (ICD-10 - E55.9) 08/13/2025 Vitamin D deficiency (ICD-10 - E55.9) 10/30/2024 Encounter for general adult medical examination without abnormal findings (ICD-10 - Z00.00) 08/13/2025 Encounter for general adult medical examination without abnormal findings (ICD-10 - Z00.00) 10/30/2024 Gastroesophageal reflux disease, unspecified whether esophagitis present (ICD-10 - K21.9) 08/13/2025 Gastroesophageal reflux disease, unspecified whether esophagitis present (ICD-10 - K21.9) 08/13/2025 Type 2 diabetes mellitus with diabetic peripheral angiopathy without gangrene, without long-term current use of insulin (ICD-10 - E11.51) 10/30/2024 Type 2 diabetes mellitus with diabetic peripheral angiopathy without gangrene, without long-term current use of insulin (ICD-10 - E11.51) 10/30/2024 Chronic constipation (ICD-10 - K59.09) 08/13/2025 Chronic constipation (ICD-10 - K59.09) 08/13/2025 Osteoarthritis of multiple joints, unspecified osteoarthritis type (ICD-10 - M15.9) 10/30/2024 Osteoarthritis of multiple joints, unspecified osteoarthritis type (ICD-10 - M15.9) 08/13/2025 Combined forms of age-related cataract, bilateral (ICD-10 - H25.813) 08/13/2025 Dry eye syndrome of bilateral lacrimal glands (ICD-10 - H04.123) 08/13/2025 Rash and other nonspecific skin eruption (ICD-10 - R21) Plan Of Treatment No Information Insurance Providers Payer Name Payer Address Payer Phone Subscriber Number Group Number Insured Name Patient Relationship to Insured Coverage Start Date Coverage End Date [facility] ([id number]) [id number] [facility] [address] [place] [address] [id number] Venus Zhang Self - patient is the insured 1 9 Medical (General) History Medical History History ICD Code HTN HLD OA GERD Surgical History Surgery Date(Month/Year) hysterectomy Cholecystectomy Hospitalization History Reason Date(Month/Year) No recent hospitalizations
== END 2025-09-04 09:44 | disposition home or self-care (01) ==
LOC: HO.HGI 09:01
PROVIDERS: PCP Internal Medicine; Visit Provider Nurse Practitioner
DX: K21.9 Gastro-esophageal reflux disease without esophagitis (principal); K59.00 Constipation, unspecified
CPT/HCPCS: 99213

== ENCOUNTER → 2025-09-04 09:01 | Outpatient (BNVA) | payer OTHER, SELFPAY | PROVIDERS: PCP Internal Medicine; Visit Provider Nurse Practitioner | DX: K21.9 Gastro-esophageal reflux disease without esophagitis (principal); K59.00 Constipation, unspecified | CPT/HCPCS: 99212 ==

== ENCOUNTER 2025-10-08 11:46 | Outpatient (REF) | payer MEDICARE, SELFPAY ==
--- NOTE | ~2025-10-08 | MM_ITS ---
EXAMINATION: MM SCREENING DIGITAL BREAST TOMOSYNTHESIS, BILATERAL CLINICAL INFORMATION: Screening. Asymptomatic. COMPARISON: Mammography: Comparison is made with available priors TECHNIQUE: Digital breast mammography with tomosynthesis is performed in both the craniocaudal and mediolateral oblique views along with computer-aided detection (CAD). FINDINGS: There are scattered areas of fibroglandular density. There are no significant masses, abnormal calcifications, or other abnormalities. MM/MM tomosynthesis screening BI IMPRESSION: No mammographic evidence of malignancy. ASSESSMENT: BI-RADS Category 1: Negative RECOMMENDATION: Routine annual mammography screening. 1 year F/U This examination should not preclude the clinical evaluation of a suspicious palpable abnormality. This patient's information was entered into a reminder system with a target due date for their next mammogram. Electronically signed by: Stephenie New DO 10/08/2025 12:42 PM [facility]
--- OUTSIDE RECORDS SUMMARY | 2025-10-08 15:31 | XMS_ITS | Clinical Summary ---
Author Organization [employer] Address [address] [place] [address] 7t [place] [address] Care Team Providers Care Car Wash Supervisor Name Role Phone Darline Finnegan MD Primary Care Provider + Allergies No known active allergies Medications Blood Glucose Monitoring Suppl (ONE TOUCH ULTRA 2) w/Device kitIndications: IFG (impaired fasting glucose) Use to test blood sugar two times daily 1 kit 10/11/20 23 Active ciclopirox (Penlac) 8 % solutionIndicat ions:Onychomyco sis of great toe APPLY TOPICALLY TO THE AFFECTED AREA(S) EVERY DAY AT BEDTIME DIRECTED 6.6 mL 3 01/26/20 25 Active Lancets (OneTouch Delica Plus [id number]) misc USE DIRECTED TO TEST BLOOD SUGAR TWICE DAILYUSE DIRECTED TO TEST BLOOD SUGAR TWICE DAILY 100 each 11 04/12/20 25 Active melatonin 5 MG tablet TAKE 2 TABLETS (10mg) BY MOUTH ONCE DAILY AT BEDTIME 60 tablet 07/25/20 25 Active ketoconazole (NIZOral) 2 % cream Apply topically Once per day. 15 g 08/03/20 25 Active Diclofenac Sodium 1 % gelIndications: Low back pain, unspecified back pain laterality, unspecified chronicity, unspecified whether sciatica present APPLY 2 GRAMS TOPICALLY TO AFFECTED AREA(S) FOUR TIMES DAILY 100 g 3 08/03/20 25 Active Calcium Carb-Cholecalci ferol (Calcium 500 + D) 500-3.125 MG-MCG tablet Take 1 tablet by mouth Once per day. 30 tablet 11 08/03/20 25 Active Accu-Chek Guide Test test stripIndication s:IFG (impaired fasting glucose) USE DIRECTED TO TEST BLOOD SUGAR TWICE DAILY 100 each 11 09/11/20 25 Active Accu-Chek Softclix Lancets lancetsIndicati ons:IFG (impaired fasting glucose) USE DIRECTED TO TEST BLOOD SUGAR TWICE DAILY 100 each 12 09/11/20 25 026 Active Blood Glucose Monitoring Suppl (Accu-Chek Guide Me) w/Device kitIndications: IFG (impaired fasting glucose) USE DIRECTED TO TEST BLOOD SUGAR TWICE DAILY 1 kit 09/11/20 25 Active losartan (Cozaar) 50 MG tablet TAKE 1 TABLET BY MOUTH EVERY DAY 90 tablet 1 09/24/20 25 Active glucose blood (OneTouch Ultra) test stripIndication s:IFG (impaired fasting glucose) USE TO TEST BLOOD SUGAR TWICE DAILY 100 each 11 01/31/20 25 025 Discontinued losartan (Cozaar) 50 MG tablet TAKE 1 TABLET BY MOUTH EVERY DAY 90 tablet 1 03/12/20 25 025 Discontinued Active Problems Problem Noted Date Diagnosed Date [...] date 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 [facility], she will let me know if she [...] Date Resolved Date Candidal intertrigo 01/07/2023 03/19/20 25 Encounters Date Type Department Care Team Description 10/08/2025 Orders Only [facility] [address] [place] [address] Darline Finnegan MD 09/23/2025 Refill [facility] [address] [place] [address] Darline Finnegan MD 09/10/2025 Refill [facility] [address] [place], [place] [phone] Darline Finnegan MD IFG (impaired fasting glucose) 08/03/2025 11:15 AM EDT Office Visit [facility] [address] [place] [phone] Darline Finnegan MD Adjustment insomnia (Primary Dx); Tinea corporis; Chronic pain of right knee; Low back pain, unspecified back pain laterality, unspecified chronicity, unspecified whether sciatica present; IFG (impaired fasting glucose) 08/03/2025 Travel 08/02/2025 Telephone [facility] [address] [place] [phone] Darline Finnegan MD chart prep 07/26/2025 Patient Outreach [facility] [address] [place] [phone] Darline Finnegan MD Pre-visit Planning ([facility] screening completed on 03/12/2025) 07/25/2025 Refill [facility] [address] [place] [address] Darline Finnegan MD from Last 3 Months Immunizations Immunization Administration [...] of 1 - PCV) 2005 COVID-19 Vaccine (2024- season) 2025 10/23/2024, 10/11/2023, 09/29/2022, Additional history exists Influenza Vaccine (#1) 2025 SDOH Screening 03/12/2026 03/12/2025 Alcohol/Substance Use Screening 05/31/2026 05/31/2025 Depression Screening 08/03/2026 08/03/2025, 08/03/20 Diabetes: Hemoglobin A1C 08/03/2026 025, 09/18/2024, 03/10/2024, Additional history exists Tobacco Screening 08/03/2026 08/03/2025 Mammogram 10/08/2026 10/08/2025, 09/09, 09/28/2023, Additional history exists Colonoscopy 12/22/2026 12/22/2021 Colorectal Cancer Screening 12/22/2026 [...] Comments BI MAMMOGRAM SCREENING TOMOSYNTHESIS BILATERAL Routine 10/08/2025 11:55 AM EST POCT GLYCATED HEMOGLOBIN, TOTAL Routine 08/03/2025 12:01 PM EDT IFG (impaired fasting glucose) POCT GLUCOSE Routine 08/03/2025 12:01 PM EDT IFG (impaired fasting glucose) LIPID PANEL WITH REFLEX TO DIRECT LDL Routine 09/11/2024 10:24 AM EST Primary hypertension HM COLONOSCOPY Routine 12/22/2021 from Last 3 Months or Most Recently Relevant to Health Maintenance Results * BI Mammogram Screening Tomosynthesis Bilateral (10/08/2025 11:55 AM EST) Anatomical Region Laterality Modality Breast Bilateral Mammography 10/08/2025 11:5 5 AM EST Narrative 10/08/2025 12:44 PM EST [facility] [address] [place], [place] [address] Mammography Report Signed Patient: Venus Zhang MR#: [id number] : 1955 Acct:[id number] Age/Sex: 70 / F ADM Date: 10/08/25 Loc: HO.MAMMO Attending Dr: Darline Finnegan MD Ordering Physician: Darline Finnegan MD Results: 1Ne gative Date of Service: 10/08/25 Follow Up: 1 Year From Orig ina Mammogram Procedure(s): MM tomosynthesis screening BI Accession Number(s): [id number] cc: Darline Finnegan MD Reason For Exam: SCREENING EXAMINATION: MM SCREENING DIGITAL BREAST TOMOSYNTHESIS, BILATERAL CLINICAL INFORMATION: Screening. Asymptomatic. COMPARISON: Mammography: Comparison is made with available priors TECHNIQUE: Digital breast mammography with tomosynthesis is performed in both the craniocaudal and mediolateral oblique views along with computer-aided detection (CAD). FINDINGS: There are scattered areas of fibroglandular density. There are no significant masses, abnormal calcifications, or other abnormalities. MM/MM tomosynthesis screening BI IMPRESSION: No mammographic evidence of malignancy. ASSESSMENT: BI-RADS Category 1: Negative RECOMMENDATION: Routine annual mammography screening. 1 year F/U This examination should not preclude the clinical evaluation of a suspicious palpable abnormality. This patient's information was entered into a reminder system with a target due date for their next mammogram. Electronically signed by: Stephenie New DO 10/08/2025 12:42 PM EST RP Dictated By: Stephenie New DO Signed By: <Electronically signed by Stephenie New DO in OV> 10/08/25 1242 DD/ 1155 TD/TT: 10/08/25 1213 Research Group Director: Procedure Note Donotuseinterpreter, Image - 10/08/2025 [facility] [address] [place] [address] Mammography Report Signed Patient: Israel Zhang#: [id number] : 5Acct:[id number] Age/Sex: 70 / FADM Date: 10/08/25 Loc: HO.MAMMO Attending Dr: Darline Finnegan MD Ordering Physician: Darline Finnegan MDResults: 1Ne gative Date of Service: 10/08/25Follow Up: 1 Year From Orig ina Mammogram Procedure(s): MM tomosynthesis screening BI Accession Number(s): [id number] cc: Darline Finnegan MD Reason For Exam: SCREENING EXAMINATION: MM SCREENING DIGITAL BREAST TOMOSYNTHESIS, BILATERAL CLINICAL INFORMATION: Screening. Asymptomatic. COMPARISON: Mammography: Comparison is made with available priors TECHNIQUE: Digital breast mammography with tomosynthesis is performed in both the craniocaudal and mediolateral oblique views along with computer-aided detection (CAD). FINDINGS: There are scattered areas of fibroglandular density. There are no significant masses, abnormal calcifications, or other abnormalities. MM/MM tomosynthesis screening BI IMPRESSION: No mammographic evidence of malignancy. ASSESSMENT: BI-RADS Category 1: Negative RECOMMENDATION: Routine annual mammography screening. 1 year F/U This examination should not preclude the clinical evaluation of a suspicious palpable abnormality. This patient's information was entered into a reminder system with a target due date for their next mammogram. Electronically signed by: Stephenie New DO 10/08/2025 12:42 PM EST RP Dictated By: Stephenie New DO Signed By: <Electronically signed by Stephenie New DO in OV> 10/08/25 1242 DD/ 1155 TD/TT: 10/08/25 1213 Research Group Director: Darline Finnegan MD IMG BI PROCEDURES Edited Result - Final * POCT Hgb A1c (08/03/2025 12:01 PM EDT) Hemoglobin A1C 5.7 4.0 - 5.7 % QC Media Lot # [id number] Lot# Expiration Date [id number] Blood 08/03/2025 12:0 1 PM EDT Darline Finnegan MD POINT OF CARE TEST ENTER /EDIT ORDERABLES Final Result * POCT Glucose (08/03/2025 12:01 PM EDT) Glucose Blood, POC 109 60 - 200 mg/dL QC Media Lot # [id number] Lot# Expiration Date ,801,446 Blood Capillary blood specimen / Unknown 08/03/2025 12:01 PM EDT Darline Finnegan MD POINT OF CARE TEST ENTER /EDIT ORDERABLES Final Result * (ABNORMAL) Lipid Panel with Reflex to Direct LDL (09/11/2024 10:24 AM EST) Triglycerides 88 <150 mg/dL [facility] Comment:Desirable Triglyceri de: less than 150 mg/dLBorderline High Triglyceride 150-199 mg/dLHigh Triglyceride: 200-499 mg/dLVery High Triglyceride: greater than or equal to 5OO mg/dL Cholesterol 193 <200 mg/dL [facility] Comment:Desirable Cholestero l: less than 200 mg/dLBorderline High Cholesterol: 200-239 mg/dLHigh Cholesterol: greater than 239 mg/dL LDL Cholesterol Calculated 125(H) <100 mg/dL [facility] Comment:Desirable LDL: less than 100 mg/dLNear Optimal/Above Optimal LDL: 110- 129 mg/dLBorderline High LDL: 130-159 mg/dLHigh LDL: 160-189 mg/dLVery High LDL: greater than or equal to 190 mg/dL HDL Cholesterol 51 >40 mg/dL [facility] Comment:Desirable HDL: great er than 40 mg/dL Note: This HDL assay may give artificially low results in patients with liver disease. Blood 09/11/2024 10:2 4 AM EST 09/11/2024 11:19 AM EST us Darline Finnegan MD LAB BLOOD ORDERABLES Fin al Result [facility] [address] [place] [phone] * (ABNORMAL) Colonoscopy (12/22/2021) Colonoscopy Abnormal( A) Normal Comment:Two small to medium sized polyps removed 12/22/2021 us Darline Finnegan MD HEALTH MAINTENANCE Final Result from Last 3 Months or Most Recently Relevant to Health Maintenance Insurance [facility] COR[employer]CTION OPTIONS (O D-SNP) DARÍO YANES [id number] Care Teams Car Wash Supervisor Relationship Specialty Start Date End Date Darline Finnegan MD [address] [place] [phone] PCP - General Family Medicine 07/19/19
--- OUTSIDE RECORDS SUMMARY | 2025-10-08 15:32 | XMS_ITS | Encounter Summary ---
Author Organization [employer] Address [address] 7[address] [place] [address] Care Team Providers Care Cream Gatherer Name Role Phone Darline Finnegan MD Primary Care Provider + Encounter Details Date Type Department Care Team (Late st Contact Info) Description 10/08/2023 Orders Only [facility] [address] [place], [place] [phone] Liliana Waggoner LPN Social History Tobacco Use [...] documented as of this encounter Care Teams Cream Gatherer Relationship Specialty Start Date End Date Darline Finnegan MD [address] [place] [phone] PCP - General Family Medicine 07/19/19 documented as of this encounter
--- OUTSIDE RECORDS SUMMARY | 2025-10-08 15:32 | XMS_ITS | Encounter Summary ---
Author Organization [employer] Address [address] [place] [address] 7t [place] [address] Care Team Providers Care Layup Worker Name Role Phone Darline Finnegan MD Primary Care Provider + Encounter Details Date Type Department Care Team (Late st Contact Info) Description 12/08/2022 Orders Only [facility] [address] [place] [address] Liliana Waggoner LPN Social History Tobacco Use [...] on filedocumented in this encounter Care Teams Layup Worker Relationship Specialty Start Date End Date Darline Finnegan MD [address] [place] [address] PCP - General Family Medicine 07/19/19 documented as of this encounter
--- OUTSIDE RECORDS SUMMARY | 2025-10-08 15:32 | XMS_ITS | Encounter Summary ---
Author Organization [employer] Address [address] [facility] [address]t [place] [address] Care Team Providers Care Police Communications Operator Name Role Phone Darline Finnegan MD Primary Care Provider + Encounter Details Date Type Department Care Team ([facility] st Contact Info) Description 10/08/[address] [facility] [address] [place], [place] [phone] Darline Finnegan MD [address] [place], [place] [phone] Social History Tobacco Use Types Packs/Day Years [...] on file documented as of this encounter Procedures Procedure Name Priority Date/Time Associated Diagnosis Comments BI MAMMOGRAM SCREENING TOMOSYNTHESIS BILATERAL Routine 10/08/2025 11:55 AM EST documented in this encounter Results * BI Mammogram Screening Tomosynthesis Bilateral (10/08/2025 11:55 AM EST) Anatomical Region Laterality Modality Breast Bilateral Mammography 10/08/2025 11:5 5 AM EST Narrative 10/08/2025 12:44 PM EST [facility] [address] [place], [place] [address] Mammography Report Signed Patient: Venus Zhang MR#: [id number] : 1955 Acct:[id number] Age/Sex: 70 / F ADM Date: 10/08/25 Loc: HO.MAMMO Attending Dr: Darline Finnegan MD Ordering Physician: Darline Finnegan MD Results: 1Ne gative Date of Service: 10/08/25 Follow Up: 1 Year From Orig ina Mammogram Procedure(s): MM tomosynthesis screening BI Accession Number(s): [id number] cc: Darline Finnegan MD Reason For Exam: [...] by: Stephenie New DO 10/08/2025 12:42 PM [facility] [place] [place] Dictated By: Stephenie New DO Signed By: <Electronically signed by Stephenie New DO in OV> 10/08/25 1242 DD/ 1155 TD/TT: 10/08/[address] Officer: Procedure Note Donotuseinterpreter, Image - 10/08/2025 [facility] [address] [place] [address] Mammography Report Signed Patient: Israel Zhang#: MM [id number] : 5Acct:[id number] Age/Sex: 70 / FADM Date: 10/08/25 Loc: MAMMO Attending Dr: Darline Finnegan MD Ordering Physician: Darline Finnegan MDResults: 1Ne gative Date of Service: 10/08/25Follow Up: 1 Year From Orig inal Mammogram Procedure(s): MM tomosynthesis screening BI Accession Number(s): [id number] cc: Darline Finnegan MD Reason For Exam: [...] by: Stephenie New DO 10/08/2025 12:42 PM [facility] [place] [place] Dictated By: Stephenie New DO Signed By: <Electronically signed by Stephenie New DO in OV> 10/08/25 1242 DD/ 1155 TD/TT: 10/08/[address] Officer: Darline Finnegan MD IMG BI PROCEDURES Edited Result - Final documented in this encounter Visit Diagnoses Not on filedocumented in this encounter Additional Health Concerns Assessment Noted Time PHQ-9 Depression Total Score: 0 08/03/20 25 11:48 AM EDT documented as of this encounter Care Teams Police Communications Operator Relationship Specialty Start Date End Date Darline Finnegan MD [address] [place] [phone] PCP - General Family Medicine 07/19/19 documented as of this encounter
--- OUTSIDE RECORDS SUMMARY | 2025-10-08 15:32 | XMS_ITS | Encounter Summary ---
Author Organization [employer] Address [address] [facility] 7t [place] [address] Care Team Providers Care Biological Lab Technician Name Role Phone Darline Finnegan MD Primary Care Provider + Reason for Visit * Reason Onset Date Comments Call Back Request 05/17/2024 Encounter Details Date Type Department Care Team ([facility] st Contact Info) Description 05/17/2024 Telephone [facility] [address] [place] [address] Darline Finnegan MD [address] [place] [address] Call Back Request Social History Tobacco Use [...] place for abone density but is unsure staff writer does not see any referrals put in documented in this encounter Plan of Treatment Not on file documented as of this encounter Visit Diagnoses Not on filedocumented in this encounter Additional Health Concerns Assessment Noted Time PHQ-9 Depression Total Score: 0 02/09/20 23 10:30 AM EDT documented as of this encounter Care Teams Biological Lab Technician Relationship Specialty Start Date End Date Darline Finnegan MD [address] [place] [address] PCP - General Family Medicine 07/19/19 documented as of this encounter
== END 2025-10-08 11:47 | disposition home or self-care (01) ==
LOC: HO.MAMMO 11:46
PROVIDERS: PCP Internal Medicine; Visit Provider Internal Medicine
DX: Z12.31 Encounter for screening mammogram for malignant neoplasm of breast (principal)
CPT/HCPCS: 77063; 77067

== ENCOUNTER → 2025-10-08 12:00 | Outpatient (BNV) | payer MEDICARE, SELFPAY | PROVIDERS: PCP Internal Medicine; Visit Provider Internal Medicine | DX: Z12.31 Encounter for screening mammogram for malignant neoplasm of breast (principal) | CPT/HCPCS: 77063; 77067 ==